=== PATIENT | female | born 1990 | race Hispanic/Latino ===

== ENCOUNTER 2018-04-06 22:36 | Emergency (ER) | payer SELFPAY ==
[2018-04-06] MEDS ORDERED: NA CHLORIDE 0.9% 2,000 ML ONE (23:10)
[2018-04-06 23:18] LABS: Absolute Lymphocytes (CBC) 5.1 K/uL (0.7-4.9); Absolute Monocytes 0.7 K/uL (0.1-1.3); Absolute Neutrophil 2.5 K/uL (1.8-8.0); Basophils % 0.5 % (0-1.3); Eosinophils % 1.5 % (0-4.4); Hematocrit 31.5 % (36.0-45.0); Lymphocytes % 59.9 % (15.3-44.8); MCH 26.4 pg (27.0-35.0); MCV 79.8 fL (80-100); MPV 7.5 fL (7.6-11.3); Monocytes % 8.5 % (3.3-12.3); RBC Red Blood Cell Count 3.94 M/uL (3.86-4.86)
[2018-04-06 23:39] LABS: BUN Blood Urea Nitrogen 14 mg/dL (7-18); Bicarbonate 27 mmol/L (21-32); Glucose Level 102 mg/dL (74-106); Potassium 3.3 mmol/L (3.5-5.1); Sodium Level 139 mmol/L (136-145)
[2018-04-06] MEDS ORDERED: POTASSIUM CL SA 10 MEQ TAB PO ONE (23:59)
--- NOTE | 2018-04-07 01:03 | ER ---
Nurse's Notes [facility] Name: Madelyn Richards Age: 27 yrs Sex: Female : 1990 Arrival Date: 04/06/2018 Time: 22:39 Bed 13 Private MD: Diagnosis: Vaginal bleeding. Anemia Presentation: 04/06 22:51 Presenting complaint: Patient states: I had my last menstrual cycle on March 26 and tl1 yesterday started having heavy vaginal bleeding with clots and have gone thru an entire package of feminine pads. Transition of care: patient was not received from another setting of care. Onset of symptoms was April 05, 2018. Risk Assessment: Do you want to hurt yourself or someone else? Patient reports no desire to harm self or others. Initial Sepsis Screen: Does the patient meet any 2 criteria? HR > 90 bpm. No. Patient's initial sepsis screen is negative. Does the patient have a suspected source of infection? No. Patient's initial sepsis screen is negative. Care prior to arrival: None. 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 - Social history:: Smoking status: Patient/guardian denies using tobacco. - Ebola Screening: : Patient negative for fever greater than or equal to 101.5 degrees Fahrenheit, and additional compatible Ebola Virus Disease symptoms Patient denies exposure to infectious person Patient denies travel to an Ebola-affected area in the 21 days before illness onset. Screenin/19 00:58 Abuse screen: Denies threats or abuse. Denies injuries from another. Nutritional tl1 screening: No deficits noted. Tuberculosis screening: No symptoms or risk factors identified. Fall Risk None identified. Assessment: 04/06 23:17 General: Appears in no apparent distress. obese, Behavior is calm, cooperative, tl1 appropriate for age. Pain: Denies pain. Neuro: Level of Consciousness is awake, alert, obeys commands. Cardiovascular: Denies chest pain. Respiratory: Airway is patent Trachea midline Respiratory effort is even, unlabored, Breath sounds are clear bilaterally. GI: Abdomen is obese, Bowel sounds present X 4 quads. Abd is soft and non tender X 4 quads. : Vaginal discharge is bloody, Reports vaginal bleeding that is bright red, with clots, heavy flow. EENT: No signs and/or symptoms were reported regarding the EENT system. Derm: No signs and/or symptoms reported regarding the dermatologic system. Musculoskeletal: No signs and/or symptoms reported regarding the musculoskeletal system. 04/07 01:15 Reassessment: Patient and/or family updated on plan of care and expected duration. Pain tl2 level reassessed. Patient is alert, oriented x 3, equal unlabored respirations, skin warm/dry/pink. Patient states feeling better. Patient states symptoms have improved. : Reports vaginal bleeding that is moderate flow. Vital Signs: 04/06 22:53 BP 130 / 93; Pulse 105; Resp 18; Temp 98.4; Pulse Ox 97% ; Weight 154.22 kg; Height 5 tl1 ft. 9 in. (175.26 cm); Pain 0/10; 23:20 BP 124 / 71; Pulse 99; Resp 20; Pulse Ox 99% on R/A; tl2 04/07 00:15 BP 127 / 80; Pulse 87; Resp 16; Pulse Ox 100% on R/A; Pain 0/10; tl1 00:58 BP 129 / 82; Pulse 85; Resp 17; Temp 98.5; Pulse Ox 100% on R/A; Pain 0/10; tl1 04/06 22:53 Body Mass Index 50.21 (154.22 kg, 175.26 cm) tl1 ED Course: 04/06 22:39 Patient arrived in ED. al2 22:40 Suman Rose MD is Attending Physician. pkl 22:50 Geni Peace, SONIA is Primary Nurse. tl1 22:52 Triage completed. tl1 22:55 Arm band placed on right wrist. tl1 22:55 Patient has correct armband on for positive identification. Placed in gown. Bed in low tl2 position. Call light in reach. Side rails up X 1. 23:16 Assist provider with pelvic exam: Set up pelvic tray. Performed by Suman Rose MD Patient tl1 tolerated well. Inserted saline lock: 20 gauge in right antecubital area, using aseptic technique. Blood collected. 04/07 01:01 Valerie Michel MD is Referral Physician. pkl 01:14 IV discontinued, intact, bleeding controlled, No redness/swelling at site. Pressure tl2 dressing applied. Administered Medications: 04/06 23:15 Drug: NS 0.9% 1000 ml Route: IV; Rate: 1000 ml; Site: right hand; tl2 04/07 00:14 Follow up: IV Status: Completed infusion tl1 00:04 Drug: K-Dur 20 mEq Route: PO; tl1 01:14 Follow up: Response: No adverse reaction; No change in condition tl2 00:14 Drug: NS 0.9% 1000 ml Route: IV; Rate: 125 ml/hr; Site: right antecubital; tl1 01:14 Follow up: IV Status: Completed infusion tl2 Outcome: 01:02 Discharge ordered by MD. pkl 01:13 Discharged to home ambulatory, with family. tl2 01:13 Condition: stable 01:13 Discharge instructions given to patient, Instructed on discharge instructions, follow up and referral plans. medication usage, Demonstrated understanding of instructions, follow-up care, medications, Prescriptions given X 2. 01:15 Patient left the ED. tl2 Signatures: Suman Rose MD MD pkl Geni Peace RN RN tl1 Clary Juan RN RN tl2 Angelia Jensen
--- NOTE | 2018-04-07 01:03 | EDPHYS ---
Physician Documentation [facility] Name: Madelyn Richards Age: 27 yrs Sex: Female : 1990 Arrival Date: 04/06/2018 Time: 22:39 Bed 13 Private MD: ED Physician Suman Rose HPI: 04/06 23:31 This 27 yrs old Female presents to ER via Ambulatory with complaints of pkl Vaginal Bleeding. 23:31 The patient presents with vaginal bleeding that is moderate, with clots. Onset: The pkl symptoms/episode began/occurred yesterday. Patient said her last menstrual period was March 26, about 10 days ago. Said her last sexual intercourse was about 2 months ago.. 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 - Social history:: Smoking status: Patient/guardian denies using tobacco. - Ebola Screening: : Patient negative for fever greater than or equal to 101.5 degrees Fahrenheit, and additional compatible Ebola Virus Disease symptoms Patient denies exposure to infectious person Patient denies travel to an Ebola-affected area in the 21 days before illness onset. ROS: 23:31 Positive for vaginal bleeding. pkl 23:31 Eyes: Negative for injury, pain, redness, and discharge, ENT: Negative for injury, pain, and discharge, Neck: Negative for injury, pain, and swelling, Cardiovascular: Negative for chest pain, palpitations, and edema, Respiratory: Negative for shortness of breath, cough, wheezing, and pleuritic chest pain, Abdomen/GI: Negative for abdominal pain, nausea, vomiting, diarrhea, and constipation, Back: Negative for injury and pain, MS/Extremity: Negative for injury and deformity, Skin: Negative for injury, rash, and discoloration, Neuro: Negative for headache, weakness, numbness, tingling, and seizure. Exam: 23:31 Head/Face: Normocephalic, atraumatic. Eyes: Pupils equal round and reactive to light, pkl extra-ocular motions intact. Lids and lashes normal. Conjunctiva and sclera are non-icteric and not injected. Cornea within normal limits. Periorbital areas with no swelling, redness, or edema. ENT: Nares patent. No nasal discharge, no septal abnormalities noted. Tympanic membranes are normal and external auditory canals are clear. Oropharynx with no redness, swelling, or masses, exudates, or evidence of obstruction, uvula midline. Mucous membranes moist. Neck: Trachea midline, no thyromegaly or masses palpated, and no cervical lymphadenopathy. Supple, full range of motion without nuchal rigidity, or vertebral point tenderness. No Meningismus. Chest/axilla: Normal chest wall appearance and motion. Nontender with no deformity. No lesions are appreciated. Cardiovascular: Regular rate and rhythm with a normal S1 and S2. No gallops, murmurs, or rubs. Normal PMI, no JVD. No pulse deficits. Respiratory: Lungs have equal breath sounds bilaterally, clear to auscultation and percussion. No rales, rhonchi or wheezes noted. No increased work of breathing, no retractions or nasal flaring. Abdomen/GI: Soft, non-tender, with normal bowel sounds. No distension or tympany. No guarding or rebound. No evidence of tenderness throughout. Back: No spinal tenderness. No costovertebral tenderness. Full range of motion. 23:31 : Pelvic Exam: Speculum exam: moderate bleeding, blood clots in vaginal vault, the nurse was present for the exam. 23:31 Musculoskeletal/extremity: Exam is negative for acute changes. 23:31 Skin: Exam negative for rash. 23:31 Neuro: Orientation: is normal, Mentation: is normal, Cranial nerves: grossly normal, Motor: is normal. 23:40 : Pelvic Exam: No vaginal laceration or teat noted. [facility] Vital Signs: 22:53 BP 130 / 93; Pulse 105; Resp 18; Temp 98.4; Pulse Ox 97% ; Weight 154.22 kg; Height 5 tl1 ft. 9 in. (175.26 cm); Pain 0/10; 23:20 BP 124 / 71; Pulse 99; Resp 20; Pulse Ox 99% on R/A; tl2 08/19 00:15 BP 127 / 80; Pulse 87; Resp 16; Pulse Ox 100% on R/A; Pain 0/10; tl1 00:58 BP 129 / 82; Pulse 85; Resp 17; Temp 98.5; Pulse Ox 100% on R/A; Pain 0/10; tl1 04/06 22:53 Body Mass Index 50.21 (154.22 kg, 175.26 cm) tl1 MDM: 04/06 22:40 Patient medically screened. pkl 04/07 00:54 Data reviewed: vital signs, nurses notes, lab test result(s). ED course: Patient pkl feeling better. Pelvic exam ( Bimanual ) done. Vaginal bleeding decreased. Patient advised to follow up with Dr. 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 at [facility] on Sunday ( 04/08/18 ). Advised to return to ER if vaginal bleeding is worse. Patient understood instructions.. 04/06 22:55 Order name: Basic Metabolic Panel; Complete Time: 23:40 tl1 04/06 22:55 Order name: CBC with Diff tl1 04/06 22:56 Order name: Type And Screen tl1 04/06 22:58 Order name: Test, Serum; Complete Time: 23:29 tl2 04/06 22:55 Order name: IV Saline Lock; Complete Time: 23:16 tl1 04/06 22:55 Order name: Labs collected and sent; Complete Time: 23:16 tl1 04/06 22:55 Order name: NPO; Complete Time: 23:16 tl1 04/06 23:26 Order name: Manual Differential EDMS 04/06 23:38 Order name: ABO/RH no charge; Complete Time: 23:40 EDMS Administered Medications: 04/06 23:15 Drug: NS 0.9% 1000 ml Route: IV; Rate: 1000 ml; Site: right hand; tl2 04/07 00:14 Follow up: IV Status: Completed infusion tl1 00:04 Drug: K-Dur 20 mEq Route: PO; tl1 01:14 Follow up: Response: No adverse reaction; No change in condition tl2 00:14 Drug: NS 0.9% 1000 ml Route: IV; Rate: 125 ml/hr; Site: right antecubital; tl1 01:14 Follow up: IV Status: Completed infusion tl2 Disposition: 04/07/18 01:02 Discharged to Home. Impression: Vaginal bleeding. Anemia. - Condition is Stable. - Prescriptions for Ferrous Sulfate 325 mg (65 mg Iron) Oral Tablet - take 1 tablet by ORAL route 2 times per day; 60 tablet. - Medication Reconciliation Form, Thank You Letter, Antibiotic Education, Prescription Opioid Use form. - Follow up: Valerie Michel MD; When: 1 - 2 days; Reason: Re-evaluation by your physician. - Problem is new. - Symptoms have improved. Signatures: Dispatcher [employer] [facility] Suman Rose MD MD pkl Geni Peace RN RN tl1 Clary Juan RN RN tl2 Corrections: (The following items were deleted from the chart) 04/06 23:25 22:55 ABO/RH TYPING+BB.LAB.BRZ ordered. EDOR EDOR 23:28 22:59 QUANTITATIVE HCG+C.LAB.BRZ ordered. [facility] 04/07 01:15 01:02 04/07/2018 01:02 Discharged to Home. Impression: Vaginal bleeding. Anemia. tl2 Condition is Stable. Forms are Medication Reconciliation Form, Thank You Letter, Antibiotic Education, Prescription Opioid Use. Follow up: Valerie Michel; When: 1 - 2 days; Reason: Re-evaluation by your physician. Problem is new. Symptoms have improved. pkl
[2018-04-07 01:24] VITALS: O2SAT 100
[2018-04-07 01:25] VITALS: BP 129/82; TEMP 98.5
[2018-04-07 01:44] LABS: Blood Morphology Comment NOT SEEN (NOT SEEN); Platelet Estimate ADEQ
== END 2018-04-07 01:15 | disposition home or self-care (01) ==
LOC: ER 22:36
DX: N93.9 Abnormal uterine and vaginal bleeding, unspecified (principal); D64.9 Anemia, unspecified; Z88.0 Allergy status to penicillin
CPT/HCPCS: 36415; 80048; 84703; 85025; 86850; 86900; 86901; 96360; 96361; 99284; J7030

== ENCOUNTER 2022-08-07 19:34 | Emergency (ER) | payer OTHER ==
--- OUTSIDE RECORDS SUMMARY | 2022-08-07 19:38 | XMS REPORT | Continuity of Care Document ---
:1990 Author Organization [facility] t Address [address] [place] [address] Care Team Providers Name Role Phone PCP, PATIENT DOES NOT HAVE A Primary Care Physician Unavaila IRMA Vázquez Attending Clinician Unavailable Jazmyne Mendez Attending Clinician [phone] Unknown, Attending Attending Clinician Unavailable JAZMYNE ANDREWS Attending Clinician Unavailable Irma Adams MD Attending Clinician Doctor Unassigned, [place] Attending Clinician Unavailable Only, Ang Db Test Attending Clinician Unavailable Omar Marvin MD Attending Clinician OMAR MARVIN Attending Clinician Unavailable Stefan Hui DO Attending Clinician Payers Payer Name Policy Type Policy Number Effective Date Expiration Date S ource [facility] [id number] 2021 2022 00:00:00 00:00:00 [facility] [id number] 2020 PPO/POS II 00:00:00 Problems Condition Condition Condition Status Onset Resolution Last Treating Co mments Source Name Details Category Date Date Treatment Clinician Date Malaise Malaise Disease Active Univers and and 5-04 ity of fatigue fatigue 00:00: [place] [address] [facility] [place] Rectal Rectal Disease Active 2012-08 Univers bleeding bleeding 0-04 ity of 00:00: [place] [address] Medical Branch History of History of Disease Active 2012-08 U nivers anemia anemia 0-03 ity of 00:00: [place] 00 Medical Branch Pelvic Pelvic Disease Active 2012-08 Univers pain pain 0-03 ity of 00:00: [place] 00 Medical Branch Morbid Morbid Disease Active 2012-08 Univers obesity obesity 0-03 ity of 00:00: [place] 00 Medical Branch Immune to Immune to Disease Active 2012-08 Uni vers varicella varicella 0-03 ity of 00:00: [place] 00 Medical Branch Rubella Rubella Disease Active 2012-08 Univers immune immune 0-03 ity of 00:00: [place] 00 Medical Branch Allergies, Adverse Reactions, Alerts Allergy Allergy Status Severity Reaction(s) Onset Inactive Treating Comm ents Source Name Type Date Date Clinician PENICILL Drug Active Hives 2010-08 Univers INS Class 1-17 ity of 00:00: [place] 00 Medical Branch Penicill Propensi Active Other - See 2010-08 Chest U nivers ins ty to comments 1-17 pain ity of adverse 00:00: [place] reaction 00 Medical s Branch Penicill Propensi Active Other - See 2010-08 Chest U nivers ins ty to comments 1-17 pain ity of adverse 00:00: [place] reaction 00 Medical s Branch Social History Social Habit Start Date Stop Date Quantity Comments Source History SDOH University o f Alcohol Frequency [facility] edical Branch History SDOH University o f Alcohol Std [place] Medical Drinks Branch History SDOH University o f Alcohol Binge [place] Medic al Branch Alcohol intake 2022-07-04 2022-07-04 .57 /d University of 00:00:00 00:00:00 [facility] Tobacco use and 2013-05-22 2013-05-22 Smokeless tobacco Un iversity of exposure 00:00:00 00:00:00 non-user [facility] Alcohol Comment 2013-05-22 2013-05-22 on occasion Universi ty of 00:00:00 00:00:00 [facility] Sex [birth year] Universit y of 00:00:00 00:00:00 [facility] Smoking Status Start Date Stop Date Source Never smoked tobacco [facility] Medications Ordered Filled Start Stop Current Ordering Indication Dosage Frequency Signature Comments Components Source Medication Medication Date Date Medication? Clinician (SIG) Name Name oseltamivir 2021-08- Yes [id number] 75mg Take 1 Univers (TAMIFLU) 09-03 capsule by ity of 75 mg 00:00: 05:59 mouth in [place] capsule 00 :00 the Medical morning Branch and 1 capsule in the evening. Do all this for 5 days. metroNIDAZO 2021- No [id number] 500mg Take 1 Univers LE 500 mg 10-17 tablet by ity of tablet 00:00: 05:59 mouth [place] 00 :00 every 12 Medical (twelve) Branch hours for 7 days. Do not drink alcohol while taking this medication . ASPIRIN/BAM Yes Take by Uni vers TAMINOPHEN/ 2-12 mouth. ity of CAFFEINE 14:05: [place] (EXCEDRIN 25 Medical MIGRAINE Branch ORAL) ASPIRIN/BAM Yes Take by Uni vers TAMINOPHEN/ 2-12 mouth. ity of CAFFEINE 14:05: [place] (EXCEDRIN 25 Medical MIGRAINE Branch ORAL) ASPIRIN/BAM Yes Take by Uni vers TAMINOPHEN/ 2-12 mouth. ity of CAFFEINE 14:05: [place] (EXCEDRIN 25 Medical MIGRAINE Branch ORAL) Immunizations Ordered Filled Immunization Date Status Comments [facility] e Immunization Name Name SARS-COV-2 COVID-19 2021-07-11 Completed Unive rsity of PFIZER VACCINE 00:00:00 [facility] SARS-COV-2 COVID-19 2021-07-11 Completed Unive rsity of PFIZER VACCINE 00:00:00 [facility] SARS-COV-2 COVID-19 2021-07-11 Completed Unive rsity of PFIZER VACCINE 00:00:00 [facility] SARS-COV-2 COVID-19 2021-06-20 Completed Unive rsity of PFIZER VACCINE 00:00:00 [facility] SARS-COV-2 COVID-19 2021-06-20 Completed Unive rsity of PFIZER VACCINE 00:00:00 [facility] SARS-COV-2 COVID-19 2021-06-20 Completed Unive rsity of PFIZER VACCINE 00:00:00 [facility] Td 2012-09-20 Completed University 00:00:00 [facility] Td 2012-09-20 Completed University of 00:00:00 [facility] Td 2012-09-20 Completed University 00:00:00 [facility] Influenza Virus 2011-07-09 Completed Universit y of Vaccine 00:00:00 [facility] Influenza Virus 2011-07-09 Completed Universit y of Vaccine 00:00:00 [facility] Influenza Virus 2011-07-09 Completed Universit y of Vaccine 00:00:00 [facility] Vital Signs Vital Name Observation Time Observation Value Comments Source Systolic blood 2022-07-04 20:11:00 143 mm[Hg] Univer sity [facility] Diastolic blood 2022-07-04 20:11:00 85 [facility]Hg[facility] 2022-07-04 20:11:00 101 /min Universi ty of [facility] Body temperature 2022-07-04 20:11:00 37.17 Ca [facility] [place] [facility] Respiratory rate 2022-07-04 20:11:00 18 /min [facility] Body height 2022-07-04 20:11:00 175.3 cm Universi ty [facility] Body weight 2022-07-04 20:11:00 165.336 kg Universi ty [facility] BMI 2022-07-04 20:11:00 53.83 kg/m2 Universi ty [facility] Oxygen saturation in 2022-07-04 20:11:00 100 /min [facility] Arterial blood by [facility] Pulse oximetry Branch Systolic blood 2021-10-17 15:22:00 120 mm[Hg] Univer [facility] Diastolic blood 2021-10-17 15:22:00 82 mm[Hg] [facility] 2021-10-17 15:22:00 78 /min Universi ty [facility] Body temperature 2021-10-17 15:22:00 36.78 Ca [facility] [place] [facility] Respiratory rate 2021-10-17 15:22:00 18 /min [facility] [place] [facility] Body height 2021-10-17 15:22:00 175.3 cm Universi ty of [facility] Body weight 2021-10-17 15:22:00 147.918 kg Universi ty [facility] BMI 2021-10-17 15:22:00 48.16 kg/m2 Universi ty [facility] Procedures Procedure Date / Time Performing Clinician Source Performed POCT MOLECULAR FLU 2022-07-04 20:26:00 Unknown, Attending [facility] POCT MOLECULAR STREP 2022-07-04 20:23:00 Unknown, Attending [facility] [place] [facility] GC & CHLAMYDIA 2021-10-17 16:10:00 Timmy Irmatj Hester o f [place] AMPLIFIED [facility] TRICHOMONAS AMPLIFIED 2021-10-17 16:10:00 Irma Adams sitmaryanne [facility] Encounters Start End Encounter Admission Attending Care Care Encounter Source Date/Time Date/Time Type Type Clinicians Facility Department ID 2022-10-17 2022-10-17 Outpatient R IRMA ADAMS [facility] [id number] Univers 10:00:00 10:00:00 ity of [facility] 2022-07-04 2022-07-04 Urgent Jazmyne Andrews [facility] 1.2. [id number] Univers 14:00:00 14:20:00 Care Unknown, Attending [facility] [id number] ity of [facility] [id number] Farrukh as GALDINO?BLEA [id number] [address] MEDICAL OFFICE [facility] 2022-07-04 2022-07-04 Outpatient R MELE [facility] [id number] Univers 14:00:00 14:00:00 KENNIKQUA ity [facility] 2022-07-04 2022-07-04 Letter Mele [facility] [id number] Univers 00:00:00 00:00:00 (Out) Jazmyne Agee [facility] [id number] ity of [facility] [id number] Farrukh as GALDINO?BLEA [id number] [address] MEDICAL OFFICE [facility] 2021-10-17 2021-10-17 Office Irma Adams [facility] [id number] Univers 09:00:00 10:20:53 Visit [place] [id number] it y of [id number] [id number] [place] [address] Branch 2021-10-17 2021-10-17 Outpatient R IRMA ADAMS [facility] [id number] Univers 09:00:00 10:20:53 ity of [facility] 2021-10-17 2021-10-17 Outpatient R IRMA ADAMS [facility] [id number] Univers 09:00:00 10:20:53 ity of [facility] 2021-10-17 2021-10-17 Outpatient R IRMA ADAMS [facility] [id number] Univers 09:00:00 09:00:00 ity of [facility] 2021-10-17 2021-10-17 Orders Doctor ESTEVAN [id number] Univers 00:00:00 00:00:00 Only Unassigned, GISELE [id number] ity of [facility] [id number] Farrukh as [id number] [facility] arben [address] 2021-08-27 2021-08-27 Laboratory Only, Ang Db Test [facility] 1.2.8 [id number] Univers 20:45:00 21:00:00 Only Kal [facility] [id number] ity of [place] [id number] Farrukh as GALDINO?BLEA [phone] [facility] [address] MEDICAL OFFICE BUILDING 2021-08-27 2021-08-27 Outpatient R KAL [facility] [id number] Univers 20:45:00 20:45:00 OMAR [facility] 2020-11-09 2020-11-09 Patient Ez [facility] [id number] Univers 00:00:00 00:00:00 Outreach Stefan [facility] [id number] i ty of [place] [facility] [id number] [id number] Nv dical [address] 2020-10-13 2020-10-13 Outpatient R IRMA ADAMS [facility] [id number] Univers 09:00:00 09:00:00 ity of [facility] 2020-10-01 2020-10-01 Office Irma Adams [facility] [id number] Univers 13:41:52 14:46:53 Visit [place] [id number] i ty [id number] [id number] Nv dical nal [address] 2020-10-01 2020-10-01 Outpatient R IRMA ADAMS [facility] [id number] Univers 13:45:00 13:45:00 ity of [facility] 2020-10-01 2020-10-01 Orders Doctor ESTEVAN [id number] Univers 00:00:00 00:00:00 Only Unassigned, GISELE [id number] ity of [place] [facility] [id number] Farrukh as [phone] [address] Results Test Description Test Time Test Comments Results Result Comments Source POCT MOLECULAR STREP 2022-07-04 20:30:56 Test Item Value Reference Range Interpretation Comme nts POCT Molecular Strep (test code = 52782-8) Negative Negative Lab Interpretation (test code = 17267-3) [id number] 20:30:25 Test Item Value Reference Range Interpretation Comments POCT Molecular FluA (test code = Positive Negative A 46510-8) Lab Interpretation (test code = Abnormal 46378-8) [facility]
[2022-08-07] MEDS ORDERED: MORPHINE 4 MG/ML SYR ONE (20:18)
[2022-08-07] MEDS ORDERED: NA CHLORIDE 0.9% 1,000 ML ONE (20:18)
[2022-08-07] MEDS ORDERED: ONDANSETRON 4 MG/2 ML VIAL ONE (20:18)
[2022-08-07 20:49] LABS: Absolute Lymphocytes (CBC) 2.3 K/uL (0.7-4.9); Hematocrit 39.3 % (36.0-45.0); Lymphocytes % 20.8 % (15.3-44.8); MCV 84.8 fL (80-100); MPV 7.6 fL (7.6-11.3); RBC Red Blood Cell Count 4.64 M/uL (3.86-4.86)
[2022-08-07 21:11] LABS: Potassium 3.5 mmol/L (3.5-5.1)
--- NOTE | 2022-08-07 21:23 | RAD REPORT ---
EXAM DESCRIPTION: Florencio Wagner Left08/07/2022 9:00 pm CLINICAL HISTORY: Left leg pain status post injury FINDINGS: No fracture is seen
[2022-08-07 21:29] LABS: Urine Blood 3+ (Negative); Urine Glucose Negative (Negative); Urine Protein 2+ (Negative); Urine Specific Gravity >=1.030 (1.005-1.030)
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
[2022-08-07 22:28] LABS: Urine Specific Gravity/Preg >1.030 (1.005-1.030)
[2022-08-07] MEDS ORDERED: KETOROLAC 30 MG/ML INJ ONE (22:33)
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
[2022-08-07 23:01] VITALS: TEMP 98.3; O2SAT 100
[2022-08-07 23:04] VITALS: BP 143/78
== END 2022-08-07 22:57 | disposition home or self-care (01) ==
LOC: ER 19:34
DX: G44.319 Acute post-traumatic headache, not intractable (principal); M54.2 Cervicalgia; M54.50 Low back pain, unspecified; M79.605 Pain in left leg; N83.299 Other ovarian cyst, unspecified side; V49.49XA Driver injured in collision with other motor vehicles in traffic accident, initial encounter; Z88.0 Allergy status to penicillin
CPT/HCPCS: 85025; 80048; 36415; 86900; 86850; 81025; 86901; 81003; 70450; 72125; 71260; 74177; 73590; Q9967; J7030; J2405; 96361; 96374; 96375; 99284

== ENCOUNTER 2024-08-29 15:46 | Inpatient (IN) | payer SELFPAY ==
--- OUTSIDE RECORDS SUMMARY | 2024-08-29 15:50 | XMS REPORT | Continuity of Care Document ---
Author Name Unknown Address [address] [facility] [place] [address] [facility] Address [address] [facility] [address] [place] [address] Care Team Providers Care Order Takers Supervisor Name Role Phone PCP, PATIENT DOES NOT HAVE A Primary Care Physic alisia Unavailable NESSA KAT Attending Clinician Unavailable OMAR BOWDEN Attending Clinician Unavailable Omar Bowden MD Attending Clinician [phone] Unknown, Attending Attending Clinician UnavailARRON Ellis Attending Clinician Unavailmichelle sepulveda Unknown, Attending Attending Clinician Unavailab Paula Quinn Attending Clinician + [phone] PAULA CHAVIRA Attending Clinician UnavailRAJESH Madden Attending Clinician Unavailable Rajesh Schwarz Attending Clinician [phone] Becca Nelson PA-C Attending Clinician [phone] BECCA NELSON Attending Clinician Unavailable Marlo Monroe Attending Clinician [phone] MARLO ARIAS Attending Clinician Unavailable Doctor Unassigned, [place] Attending Clinician U IRMA Goldsmith Attending Clinician Unavailable JAZMYNE SHABAZZ Attending Clinician Jazmyne Dick Attending Clinician [phone] Irma Warner MD Attending Clinician [phone] Only, Ang Db Test Attending Clinician UnavailOmar Ayala MD Attending Clinician [phone] Stefan Hui DO Attending Clinician Payers Payer Name Policy Type Policy Number Effective Date Expirati on Date Source [employer] [id number] 2023 00:00:00 [employer] [id number] 2022 00:00:00 2023 00:00:00 [facility] [id number] 2021 00:00:00 2022 00:00:00 TSHBP 90 DEGREES [id number] 2021 00:00:00 2021 00:00:00 [facility] PPO/POS II [id number] 2020 00:00:00 Problems Condition Name Condition Details Condition Category Status Onset Date Resolution Date Last Treatment Date Treating Clinician Comments Source Malaise and fatigue Malaise and fatigue Disease Active 12-21 00:00: 00 [facility] Rectal bleeding Rectal bleeding Disease Active 2012-08 00:00: 00 [facility] History of anemia History of anemia Disease Active 2012-08 00:00: 00 [facility] Pelvic pain Pelvic pain Disease Active 2012-08 00:00: 00 [facility] Morbid obesity Morbid obesity Disease Active 2012-08 00:00: 00 [facility] Immune to varicella Immune to varicella Disease Active 2012-08 00:00: 00 [facility] Rubella immune Rubella immune Disease Active 2012-08 00:00: 00 [facility] Normal delivery Normal delivery Disease Resolve d 2010-08 00:00: 00 2013-05-22 00:00:00 2013-05-22 12:19:00 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 Allergies, Adverse Reactions, Alerts Allergy Name Allergy Type Status Severity Reaction(s) Onset Date Inactive Date Treating Clinician Comments Source PENICILL INS Drug Class Active Hives 2010-08 00:00: 00 [facility] Penicill ins Propensi ty to adverse reaction s Active Other - See comments 2010-08 00:00: 00 Chest pain [facility] Penicill ins Propensi ty to adverse reaction s Active Other - See comments 2010-08 00:00: [address] [facility] Social History Social Habit Start Date Stop Date Quantity Comments Source [facility] SDOH Alcohol Frequency [facility] History SDOH Alcohol Std Drinks [facility] History SDOH Alcohol Binge [facility] Alcoholic beverage intake 2024-07-02 00:00:00 2024-07-02 00:00:00 .57 /d [facility] Alcohol intake 2023-11-19 00:00:00 2023-11-19 00:00:00 .57 /d [facility] Tobacco use and exposure 2023-01-25 00:00:00 2023-01-25 00:00:00 Smokeless tobacco non-user [facility] History of Social function 2021-10-17 00:00:00 2021-10-17 00:00:00 [facility] Alcohol Comment 2013-05-22 00:00:00 2013-05-22 00:00:00 on occasion [facility] Sex assigned at 1990 00:00:00 1990 00:00:00 [facility] Smoking Status Start Date Stop Date Source Never smoked tobacco [facility] Medications Ordered Medication Name Filled Medication Name Start Date Stop Date Current Medication? Ordering Clinician Indication Dosage Frequency Signature (SIG) Comments Components Source acetaminoph en (TYLENOL) tablet 975 mg 2023-08 03:30: 00 07-03 02:34 :00 No [id number] 975mg 975 mg, Oral, ONCE, 1 dose, On Sun07/02/24 at 2130, Routine [facility] ibuprofen (IBU) tablet 800 mg 2023-08 03:15: 00 07-03 02:35 :00 No [id number] 800mg 800 mg, Oral, ONCE, 1 dose, On Sun07/02/24 at 2115, Routine [facility] ondansetron 4 mg disintegrat ing tablet 2023-08 00:00: 00 Yes [id number] 4mg Take 1 tablet by mouth every 12 (twelve) hours as needed for Nausea and Vomiting (N/V). [facility] bromphenira mine-pseudo ephedrine-D M (BROMFED DM) 2-30-10 mg/5 mL syrup 2023-08 00:00: 00 Yes [id number] 10mL Take 10 mL by mouth 4 (four) times daily as needed for Congestion /Allergies , Cold symptoms or Cough. [facility] dexamethaso ne sod phos PF injection 10 mg 02-10 20:30: 00 02-10 19:44 :00 No [id number] 10mg 10 mg, Intramuscu lar, ONCE NOW, 1 dose, On Sun02/11/24 at 1530, [address] [facility] methylPREDN ISolone (MEDROL, TAMELA,) 4 mg tablets 02-10 00:00: 00 Yes [id number] Take by mouth SEE-INSTRU CTIONS. follow package directions [facility] ASPIRIN/BMA TAMINOPHEN/ CAFFEINE (EXCEDRIN MIGRAINE ORAL) 11-18 09:14: 00 Yes Take by mouth. [facility] metroNIDAZO LE 500 mg tablet 11-12 00:00: 00 11-20 04:59 :00 No [id number] 500mg Take 1 tablet by mouth in the morning and 1 tablet in the evening. Do all this for [address] [facility] fluconazole 150 mg tablet 11-12 00:00: 00 11-13 04:59 :00 No [id number] 150mg Take 1 tablet by mouth once now for [address] [facility] Cetirizine (ZYRTEC) 10 mg capsule 11-11 08:29: 10 11-11 00:00 :00 No Take by mouth. [facility] ASPIRIN/BAM TAMINOPHEN/ CAFFEINE (EXCEDRIN MIGRAINE ORAL) 11-11 08:29: 08 Yes Take by mouth. [facility] sulfamethox azole-trime thoprim (BACTRIM DS) 800-160 mg per tablet 09-09 00:00: 00 09-17 05:59 :00 No [id number] 1{tbl} Take 1 tablet by mouth in the morning and 1 tablet in the evening. Do all this for [address] [facility] azithromyci n 250 mg tablet 2022-08 00:00: 00 07-15 05:59 :00 No [id number] 500mg Take 2 tablets by mouth in the morning for [address] [facility] mupirocin 2 % ointment 05-19 00:00: 00 11-11 00:00 :00 No [id number] Apply to area(s) 3 (three) times daily. [facility] sulfamethox azole-trime thoprim (BACTRIM DS) 800-160 mg per tablet 05-19 00:00: 00 09-09 00:00 :00 No [id number] 1{tbl} Take 1 tablet by mouth in the morning and 1 tablet in the evening. [facility] Cetirizine (ZYRTEC) 10 mg capsule 01-25 10:53: 39 Yes Take by mouth. [facility] methylPREDN ISolone (MEDROL, TAMELA,) 4 mg tablets 6-08 00:00: 00 11-11 00:00 :00 No [id number] Take by mouth SEE-INSTRU CTIONS. follow package directions [facility] oseltamivir (TAMIFLU) 75 mg capsule 2021-08 1-15 00:00: 00 07-10 05:59 :00 No [id number] 75mg Take 1 capsule by mouth in the morning and 1 capsule in the evening. Do all this for [address] [facility] metroNIDAZO LE 500 mg tablet 20210-17 00:00: 00 10-25 05:59 :00 No [id number] 500mg Take 1 tablet by mouth every 12 (twelve) hours for 7 days. Do not drink alcohol while taking this medication . [facility] ASPIRIN/BAM TAMINOPHEN/ CAFFEINE (EXCEDRIN MIGRAINE ORAL) 10-01 14:05: 25 Yes Take by mouth. [facility] Immunizations Ordered Immunization Name Filled Immunization Name Date Status Comments Source SARS-COV-2 COVID-19 PFIZER VACCINE 2021-07-11 00:00:00 Completed [facility] SARS-COV-2 COVID-19 PFIZER VACCINE 2021-07-11 00:00:00 Completed [facility] SARS-COV-2 COVID-19 PFIZER VACCINE 2021-07-11 00:00:00 Completed [facility] SARS-COV-2 COVID-19 PFIZER VACCINE 2021-07-11 00:00:00 Completed [facility] SARS-COV-2 COVID-19 PFIZER VACCINE 2021-07-11 00:00:00 Completed [facility] SARS-COV-2 COVID-19 PFIZER VACCINE 2021-07-11 00:00:00 Completed [facility] SARS-COV-2 COVID-19 PFIZER VACCINE 2021-07-11 00:00:00 Completed SARS-COV-2 COVID-19 PFIZER VACCINE 2021-06-20 00:00:00 Completed [facility] SARS-COV-2 COVID-19 PFIZER VACCINE 2021-06-20 00:00:00 Completed [facility] SARS-COV-2 COVID-19 PFIZER VACCINE 2021-06-20 00:00:00 Completed [facility] SARS-COV-2 COVID-19 PFIZER VACCINE 2021-06-20 00:00:00 Completed [facility] SARS-COV-2 COVID-19 PFIZER VACCINE 2021-06-20 00:00:00 Completed [facility] SARS-COV-2 COVID-19 PFIZER VACCINE 2021-06-20 00:00:00 Completed [facility] SARS-COV-2 COVID-19 PFIZER VACCINE 2021-06-20 00:00:00 Completed [facility] Td 2012-09-20 00:00:00 Completed [facility] Td 2012-09-20 00:00:00 Completed [facility] Td 2012-09-20 00:00:00 Completed [facility] TD, NOS 2012-09-20 00:00:00 Completed [facility] TD, NOS 2012-09-20 00:00:00 Completed [facility] TD, NOS 2012-09-20 00:00:00 Completed [facility] TD, NOS 2012-09-20 00:00:00 Completed [facility] Influenza Virus Vaccine 2011-07-09 00:00:00 Completed [facility] Influenza Virus Vaccine 2011-07-09 00:00:00 Completed [facility] Influenza Virus Vaccine 2011-07-09 00:00:00 Completed [facility] Influenza Virus Vaccine 2011-07-09 00:00:00 Completed [facility] Influenza Virus Vaccine 2011-07-09 00:00:00 Completed [facility] Influenza Virus Vaccine 2011-07-09 00:00:00 Completed [facility] Influenza Virus Vaccine 2011-07-09 00:00:00 Completed [facility] Influenza Virus Vaccine Unknown Completed [facility] TD, NOS Unknown Completed [facility] SARS-COV-2 COVID-19 PFIZER VACCINE Unknown Completed [facility] Influenza Virus Vaccine Unknown Completed [facility] TD, NOS Unknown Completed [facility] SARS-COV-2 COVID-19 PFIZER VACCINE Unknown Completed [facility] Influenza Virus Vaccine Unknown Completed [facility] TD, NOS Unknown Completed [facility] SARS-COV-2 COVID-19 PFIZER VACCINE Unknown Completed [facility] Influenza Virus Vaccine Unknown Completed [facility] TD, NOS Unknown Completed [facility] SARS-COV-2 COVID-19 PFIZER VACCINE Unknown Completed [facility] Influenza Virus Vaccine Unknown Completed [facility] TD, NOS Unknown Completed [facility] SARS-COV-2 COVID-19 PFIZER VACCINE Unknown Completed [facility] Influenza Virus Vaccine Unknown Completed [facility] TD, NOS Unknown Completed [facility] SARS-COV-2 COVID-19 PFIZER VACCINE Unknown Completed [facility] Influenza Virus Vaccine Unknown Completed [facility] TD, NOS Unknown Completed [facility] SARS-COV-2 COVID-19 PFIZER VACCINE Unknown Completed [facility] Influenza Virus Vaccine Unknown Completed [facility] TD, NOS Unknown Completed [facility] SARS-COV-2 COVID-19 PFIZER VACCINE Unknown Completed [facility] Influenza Virus Vaccine Unknown Completed [facility] TD, NOS Unknown Completed [facility] SARS-COV-2 COVID-19 PFIZER VACCINE Unknown Completed [facility] Vital Signs Vital Name Observation Time Observation Value Comments S ource Systolic blood pressure 2024-07-03 02:14:00 147 mm[Hg] [facility] Diastolic blood pressure 2024-07-03 02:14:00 92 mm[Hg] [facility] Heart rate 2024-07-03 02:10:00 117 /min [facility] Body temperature 2024-07-03 02:10:00 37.33 Ca [facility] Respiratory rate 2024-07-03 02:10:00 19 /min [facility] Body height 2024-07-03 02:10:00 175.3 cm [facility] Body weight 2024-07-03 02:10:00 169.691 kg [facility] BMI 2024-07-03 02:10:00 55.24 kg/m2 [facility] Oxygen saturation in Arterial blood by Pulse oximetry 2024-07-03 02:10:00 98 /min [facility] Systolic blood pressure 2024-02-11 19:22:00 138 mm[Hg] [facility] Diastolic blood pressure 2024-02-11 19:22:00 88 mm[Hg] [facility] Heart rate 2024-02-11 19:22:00 79 /min [facility] Body temperature 2024-02-11 19:22:00 36.72 Ca [facility] Respiratory rate 2024-02-11 19:22:00 18 /min [facility] Body height 2024-02-11 19:22:00 175.3 cm [facility] Body weight 2024-02-11 19:22:00 168.313 kg [facility] BMI 2024-02-11 19:22:00 54.80 kg/m2 [facility] Oxygen saturation in Arterial blood by Pulse oximetry 2024-02-11 19:22:00 99 /min [facility] Systolic blood pressure 2023-11-19 14:31:00 111 mm[Hg] [facility] Diastolic blood pressure 2023-11-19 14:31:00 73 mm[Hg] [facility] Heart rate 2023-11-19 14:31:00 86 /min [facility] Respiratory rate 2023-11-19 14:31:00 18 /min [facility] Body height 2023-11-19 14:31:00 175.3 cm [facility] Body weight 2023-11-19 14:31:00 165.563 kg [facility] BMI 2023-11-19 14:31:00 53.90 kg/m2 [facility] Systolic blood pressure 2023-11-12 13:29:00 139 mm[Hg] [facility] Diastolic blood pressure 2023-11-12 13:29:00 89 mm[Hg] [facility] Heart rate 2023-11-12 13:29:00 68 /min [facility] Body temperature 2023-11-12 13:29:00 36.78 Ca [facility] Respiratory rate 2023-11-12 13:29:00 16 /min [facility] Body height 2023-11-12 13:29:00 175.3 cm [facility] Body weight 2023-11-12 13:29:00 165.518 kg [facility] BMI 2023-11-12 13:29:00 53.89 kg/m2 [facility] Systolic blood pressure 2023-09-10 01:37:00 138 mm[Hg] [facility] Diastolic blood pressure 2023-09-10 01:37:00 79 mm[Hg] [facility] Heart rate 2023-09-10 01:37:00 90 /min [facility] Body temperature 2023-09-10 01:37:00 37.11 Ca [facility] Respiratory rate 2023-09-10 01:37:00 16 /min [facility] Body height 2023-09-10 01:37:00 175.3 cm [facility] Body weight 2023-09-10 01:37:00 167.377 kg [facility] BMI 2023-09-10 01:37:00 54.49 kg/m2 [facility] Oxygen saturation in Arterial blood by Pulse oximetry 2023-09-10 01:37:00 99 /min [facility] Systolic blood pressure 2023-07-09 18:06:00 141 mm[Hg] [facility] Diastolic blood pressure 2023-07-09 18:06:00 90 mm[Hg] [facility] Heart rate 2023-07-09 18:06:00 93 /min [facility] Body temperature 2023-07-09 18:06:00 37.17 Ca [facility] Respiratory rate 2023-07-09 18:06:00 16 /min [facility] Body height 2023-07-09 18:06:00 175.3 cm [facility] Body weight 2023-07-09 18:06:00 162.983 kg [facility] BMI 2023-07-09 18:06:00 53.06 kg/m2 [facility] Oxygen saturation in Arterial blood by Pulse oximetry 2023-07-09 18:06:00 99 /min [facility] Systolic blood pressure 2023-05-20 01:39:00 125 mm[Hg] [facility] Diastolic blood pressure 2023-05-20 01:39:00 87 mm[Hg] [facility] Heart rate 2023-05-20 01:39:00 86 /min [facility] Body temperature 2023-05-20 01:39:00 37 Ca [facility] Respiratory rate 2023-05-20 01:39:00 18 /min [facility] Body weight 2023-05-20 01:39:00 162.342 kg [facility] BMI 2023-05-20 01:39:00 52.85 kg/m2 [facility] Oxygen saturation in Arterial blood by Pulse oximetry 2023-05-20 01:39:00 97 /min [facility] Systolic blood pressure 2023-01-25 15:51:00 130 mm[Hg] [facility] Diastolic blood pressure 2023-01-25 15:51:00 85 mm[Hg] [facility] Heart rate 2023-01-25 15:51:00 92 /min [facility] Body temperature 2023-01-25 15:51:00 36.17 Ca [facility] Respiratory rate 2023-01-25 15:51:00 19 /min [facility] Body height 2023-01-25 15:51:00 175.3 cm [facility] Body weight 2023-01-25 15:51:00 164.837 kg [facility] BMI 2023-01-25 15:51:00 53.66 kg/m2 [facility] Oxygen saturation in Arterial blood by Pulse oximetry 2023-01-25 15:51:00 95 /min [facility] Systolic blood pressure 2022-07-04 20:11:00 143 mm[Hg] [facility] Diastolic blood pressure 2022-07-04 20:11:00 85 mm[Hg] [facility] Heart rate 2022-07-04 20:11:00 101 /min [facility] Body temperature 2022-07-04 20:11:00 37.17 Ca [facility] Respiratory rate 2022-07-04 20:11:00 18 /min [facility] Body height 2022-07-04 20:11:00 175.3 cm [facility] Body weight 2022-07-04 20:11:00 165.336 kg [facility] BMI 2022-07-04 20:11:00 53.83 kg/m2 [facility] Oxygen saturation in Arterial blood by Pulse oximetry 2022-07-04 20:11:00 100 /min [facility] Systolic blood pressure 2021-10-17 15:22:00 120 mm[Hg] [facility] Diastolic blood pressure 2021-10-17 15:22:00 82 mm[Hg] [facility] Heart rate 2021-10-17 15:22:00 78 /min [facility] Body temperature 2021-10-17 15:22:00 36.78 Ca [facility] Respiratory rate 2021-10-17 15:22:00 18 /min [facility] Body height 2021-10-17 15:22:00 175.3 cm [facility] Body weight 2021-10-17 15:22:00 147.918 kg [facility] BMI 2021-10-17 15:22:00 48.16 kg/m2 [facility] Procedures Procedure Date / Time Performed Performing Clinician Source POCT SARS-COV-2 ANTIGEN (BINAX NOW) 2024-07-03 02:38:00 Omar Bowden [facility] POCT MOLECULAR FLU 2024-07-03 02:21:00 [facility] 2024-07-03 02:20:00 Omar Bowden [facility] GC & CHLAMYDIA AMPLIFIED ASSAY 2023-11-12 13:51:00 Nessa Kat [facility] GALV ONLY - VAGINAL PATHOGENS BY NUCLEIC ACID TESTING 2023-11-12 13:51:00 Nessa Kat [facility] POCT MOLECULAR STREP 2023-07-09 18:11:00 Unknown, Attcoco aleman [facility] POCT SARS-COV-2 ANTIGEN (BINAX NOW) 2023-01-25 16:20:00 Marlo Arias [facility] POCT MOLECULAR STREP 2023-01-25 15:59:00 Unknown, Attcoco aleman [facility] CONSENT/REFUSAL FOR DIAGNOSIS AND TREATMENT 2023-01-25 15:44:27 Doctor Unassigned, [place] [facility] ASSIGNMENT OF BENEFITS 2023-01-25 15:44:14 Docto r Unassigned, [place] [facility] POCT MOLECULAR FLU 2022-07-04 20:26:00 Unknown, Attend ing [facility] POCT MOLECULAR STREP 2022-07-04 20:23:00 Unknown, Samantha aleman [facility] GC & CHLAMYDIA AMPLIFIED ASSAY 2021-10-17 16:10:00 FishIrma [facility] TRICHOMONAS AMPLIFIED ASSAY 2021-10-17 16:10:00 Irma Warner [facility] Encounters Start Date/Time End Date/Time Encounter Type Admission Type Attending [facility] Facility Care Department Encounter ID Source 2024-07-02 20:00:00 2024-07-02 20:41:38 Outpatient R KAL OMAR [facility] [id number] [facility] 2024-07-02 20:00:00 2024-07-02 20:41:38 Urgent Care KalOmar Unknown, Attending [facility] [facility] 1..840.114 [id number] [id number] [facility] 2024-02-11 14:20:00 2024-02-11 15:33:21 Outpatient R ARRON GARCIA [facility] [id number] [facility] 2024-02-11 14:20:00 2024-02-11 14:40:00 Urgent Care Arron Garcia Unknown, Attending [facility] [facility] 1..840.114 350.1.13.10 [id number] [facility] 2023-11-19 09:30:00 2023-11-19 09:47:02 Outpatient R NESSA KAT [facility] [id number] [facility] 2023-11-19 09:30:00 2023-11-19 09:47:02 Office Visit Nessa Kat [facility] 1..840.114 350.1.13.10 [id number] [facility] 2023-11-13 00:00:00 2023-11-13 00:00:00 Case Management Nessa Kat [facility] 1..840.114 350.1.13.10 [id number] [facility] 2023-11-12 08:30:00 2023-11-12 08:48:05 Outpatient R NESSA KAT [facility] [id number] [facility] 2023-11-12 08:30:00 2023-11-12 08:48:05 Office Visit Nessa Kat [facility] 1..840.114 350.1.13.10 [id number] [facility] 2023-11-05 13:30:00 2023-11-05 13:30:00 Outpatient R NESSA KAT [facility] [id number] [facility] 2023-09-09 19:40:00 2023-09-09 20:00:00 Urgent Care Eugenio Paula J Unknown, Attending [facility] [facility] 1..840.114 350.1.13.10 [id number] [facility] 2023-09-09 19:40:00 2023-09-09 19:40:00 Outpatient R PAULA CHAVIRA [facility] [id number] [facility] 2023-07-09 12:00:00 2023-07-09 13:08:02 Outpatient R RAJESH CHAVEZ [facility] [id number] [facility] 2023-07-09 12:00:00 2023-07-09 13:08:02 Urgent Care Rajesh Chavez Unknown, Attending [facility] [facility] 1..840.114 350.1.13.10 [id number] [facility] 2023-07-09 00:00:00 2023-07-09 00:00:00 Telephone Rajesh Chavez [facility] [facility] 1.114 350.1.13.10 [id number] [facility] 2023-05-19 20:20:00 2023-05-19 20:49:04 Urgent Care Becca Nelson Unknown, Attending [facility]?[employer] [facility] [id number] 350.1.13.10 [id number] [facility] 2023-05-19 20:20:00 2023-05-19 20:20:00 Outpatient R BECCA NELSON [facility] [id number] [facility] 2023-01-25 10:40:00 2023-01-25 11:00:00 Urgent Care Marlo Arias Unknown, Attending [facility]?[employer] [facility] 1.84.114 350.1.13.10 [id number] [facility] 2023-01-25 10:40:00 2023-01-25 10:40:00 Outpatient R MARLO ARIAS [facility] [id number] [facility] 2023-01-25 00:00:00 2023-01-25 00:00:00 Orders Only Doctor Unassigned, [place] [facility] 1.114 350.1.13.10 4.2.7.2.[id number] [facility] 2023-01-25 00:00:00 2023-01-25 00:00:00 Letter (Out) Marlo Arias [facility] [facility] 1.84.114 350.1.13.10 4.2.7.2.[id number] [facility] 2022-10-17 10:00:00 2022-10-17 10:00:00 Outpatient R TERESA WARNERN [facility] [id number] [facility] 2022-07-04 14:00:00 2022-07-04 14:49:26 Outpatient R JAZMYNE SHABAZZ [facility] [id number] [facility] 2022-07-04 14:00:00 2022-07-04 14:20:00 Urgent Care Jazmyne Shabazz Unknown, Attending [facility]?[employer] [facility] 1.2.840.114 350.1.13.10 4.2.7.2.[id number] [facility] 2022-07-04 00:00:00 2022-07-04 00:00:00 Letter (Out) Jazmyne Shabazz [facility]?[employer] [facility] [id number] 350.1.13.10 4.2.7.2.[id number] [facility] 2021-10-17 09:00:00 2021-10-17 10:20:53 Office Visit TimmyTeresan [facility] 1..840.114 350.1.13.10 4.2.7.2.[id number] [facility] 2021-10-17 09:00:00 2021-10-17 10:20:53 Outpatient R TIMMY IRMA [facility] [id number] [facility] 2021-10-17 09:00:00 2021-10-17 10:20:53 Outpatient R IRMA WARNER [facility] [id number] [facility] 2021-10-17 09:00:00 2021-10-17 09:00:00 Outpatient R IRMA WARNER [facility] [id number] [facility] 2021-10-17 00:00:00 2021-10-17 00:00:00 Orders Only Doctor Unassigned, [place] [facility] 1.114 350.1.13.10 4.2.7.2.[id number] [facility] 2021-10-13 00:00:00 2021-10-13 00:00:00 Patient Secure Msg Doctor Unassigned, [place] [facility] 1.114 350.1.13.10 4.2.7.2.[id number] [facility] 2021-08-27 20:45:00 2021-08-27 21:00:00 Laboratory Only Only, Ang Db Test Kal [facility] 1.114 350.1.13.10 4.2.7.2.[id number] [facility] 2021-08-27 20:45:00 2021-08-27 20:45:00 Outpatient R OMAR BOWDEN [facility] [id number] [facility] 2020-11-09 00:00:00 2020-11-09 00:00:00 Patient Outreach Stefan Hui [facility] 1.114 350.1.13.10 4.2.7.2.[id number] [facility] 2020-10-13 09:00:00 2020-10-13 09:00:00 Outpatient R IRMA WARNER [facility] [id number] [facility] 2020-10-01 13:41:52 2020-10-01 14:46:53 [facility] 1.114 350.1.13.10 4.2.7.2.[id number] [facility] 2020-10-01 13:45:00 2020-10-01 13:45:00 Outpatient IRMA MARTEL [facility] [id number] [facility] 2020-10-01 00:00:00 2020-10-01 00:00:00 Orders Only Doctor Unassigned, [place] [facility] [id number] 350.1.13.10 4.2.7.2.[id number] [facility] Results Test Description Test Time Test Comments Results Result Co mments Source [facility] Molecular [id number] 02:32:52* Test Item Value Reference Range Interpretation Comme nts POCT Molecular FluA (test co de = 89740-5) Negative Negative POCT Molecular FluB (test co de = 53060-0) Negative Negative Lab Interpretation (test cod e = 31058-3) Normal [facility] MOLECULAR [id number] 02:27:54* Test Item Value Reference Range Interpretation Comme nts POCT Molecular Strep (test c ode = 48341-1) Negative Negative Lab Interpretation (test cod e = 56099-5) Normal [facility] MOLECULAR [id number] 18:16:07* Test Item Value Reference Range Interpretation Comme nts POCT Molecular Strep (test c ode = 61034-0) Positive Negative A Lab Interpretation (test cod e = 11479-3) Abnormal [facility] MOLECULAR [id number] 18:16:07* Test Item Value Reference Range Interpretation Comme nts POCT Molecular Strep (test c ode = 17510-3) Positive Negative A Lab Interpretation (test cod e = 06089-0) Abnormal [facility] SARS-COV-2 ANTIGEN (BINAX NOW)2023-01-25 16:20:00* Test Item Value Reference Range Interpretation Comme nts POCT SARS-COV-2 ANTIGEN (honey t code = 20820-6) Not Detected Not Detected On board controls acceptable with C Line (test code = 3574) Yes Lab Interpretation (test cod e = 28058-6) Normal [facility] MOLECULAR [id number] 16:06:52* Test Item Value Reference Range Interpretation Comme nts POCT Molecular Strep (test c ode = 88458-3) Negative Negative Lab Interpretation (test cod e = 60253-8) Normal [facility] MOLECULAR [id number] 20:30:56* Test Item Value Reference Range Interpretation Comme nts POCT Molecular Strep (test c ode = 65813-6) Negative Negative Lab Interpretation (test cod e = 34389-3) Normal [facility] MOLECULAR [id number] 20:30:25* Test Item Value Reference Range Interpretation Comme nts POCT Molecular FluA (test co de = 34553-2) Positive Negative A Lab Interpretation (test cod e = 27734-8) Abnormal [facility]
[2024-08-29 16:28] LABS: Absolute Basophils 0.1 K/uL (0-0.5); Absolute Eosinophils 0.2 K/uL (0-0.5); Absolute Lymphocytes (CBC) 9.6 K/uL (0.7-4.9); Absolute Monocytes 0.6 K/uL (0.1-1.3); Absolute Neutrophil 3.6 K/uL (1.8-8.0); Basophils % 0.5 % (0-1.3); Eosinophils % 1.4 % (0-4.4); Hematocrit 29.5 % (36.0-45.0); Lymphocytes % 68.5 % (15.3-44.8); MCH 26.9 pg (27.0-35.0); MCHC 30.6 g/dL (32.0-36.0); MCV 88.1 fL (80-100); MPV 8.6 fL (7.6-11.3); Monocytes % 3.9 % (3.3-12.3); Neutrophils % 25.7 % (41.7-73.7); Nucleated Red Blood Cells % 0.2 % (0-0); Platelets 240 thou/uL (152-406); RBC Red Blood Cell Count 3.35 M/uL (3.86-4.86); Red Cell Distribution Width 16.7 % (12.1-15.2)
[2024-08-29 16:32] LABS: PTT, Activated Partial Thromb 56.7 SECONDS (24.3-36.9); Protime INR 1.26
[2024-08-29] MEDS ORDERED: DOPAMINE/D5W 400 MG/250 ML BAG IV ONE (16:37)
[2024-08-29 16:55] LABS: ALT/SGPT 211 U/L (13-56); AST/SGOT 173 U/L (15-37); Albumin 2.4 g/dL (3.4-5.0); Albumin/Globulin Ratio 0.7 (1.1-1.8); Alkaline Phosphatase 68 U/L (45-117); Anion Gap 26.7 mEq/L (5.0-15.0); BUN Blood Urea Nitrogen 14 mg/dL (7-18); Bicarbonate 22 mEq/L (21-32); Bilirubin Direct < 0.2 mg/dL (0-0.2); Bilirubin Total < 0.2 mg/dL (0.2-1.0); Globulin 3.5 g/dL (2.3-3.5); Glomerular Filtration Rate 56 ml/min (=/>90); Glucose Level 595 mg/dL (74-106); Potassium 3.7 mEq/L (3.5-5.1); Protein, Total 5.9 g/dL (6.4-8.2); Sodium Level 139 mEq/L (136-145); Troponin High Sensitivity 29.7 pg/mL (<58.9)
[2024-08-29 16:56] LABS: Atypical Lymphocytes 6 %; Differential Total Cells Count 100; Lymphocytes 62 % (15-42); Monocytes 6 % (0-10); Segmented Neutrophils 23 % (40-80)
[2024-08-29 16:57] LABS: Blood Morphology Comment NOT SEEN (NOT SEEN); Platelet Estimate ADEQ; Platelets, Giant PRESENT
--- NOTE | 2024-08-29 17:01 | EDPHYS ---
Physician Documentation [facility] Name: Madelyn Richards Age: 34 yrs Sex: Female : 1990 Arrival Date: 08/29/2024 Time: 15:46 Bed 3 Private MD: ED Physician Anderson Ann HPI: 08/29 16:32 This 34 yrs old Female presents to ER via Unassigned with complaints of CPR. sp3 16:32 34-year-old female with no known past medical history presents as CPR arrest by EMS. sp3 History per family states that she recently had a break-up with his significant other that she was engaged with but it seems to be doing "okay" and today she went into the restroom and patient's mom heard a loud thump to which she came to check on her and her no response. She entered the bathroom to find patient unresponsive on the floor at which point EMS was activated. EMS arrived to find asystole rhythm and patient unresponsive. ACLS was started with eventual PEA and ROSC cycling [id number] between those 2 and route to the ED. Please see ED course for further documentation. ROS, history and physical severely limited due to CPR.. [employer]: 17:05 LMP 08/29/2024, unknown ph Historical: - Allergies: 16:26 PENICILLINS; ph - PSHx: 16:26 Cholecystectomy; ph - Immunization history:: Adult Immunizations unknown. - Infectious Disease History:: Denies. - Social history:: Smoking status: unknown. ROS: 16:37 Unable to obtain ROS due to obtunded state, CPR, sp3 Exam: 16:37 Constitutional: The patient appears Exam limited by obesity and CPR. No signs of overt sp3 trauma noted. Emesis noted on the mouth and body without blood or coffee grounds. Pupils 4 mm and unresponsive. The following is examination after ROSC: Irregular pulse bounding and tachycardic. Abdomen soft. No track alfaro. GCS 3 T. 16:58 ECG was reviewed by the Attending Physician. EKG demonstrates supraventricular sp3 tachycardia at 152 bpm and irregular rhythm with incomplete right bundle and diffuse ST/T changes. Vital Signs: 15:59 BP 112 / 76; Pulse 162; Resp 18 A; Pulse Ox 88% on ETT ambu; ph 16:07 BP 82 / 53; Pulse 127; Resp 18; Pulse Ox 97% on ETT vent; ph 16:15 BP 104 / 70; Pulse 141; Resp 18; Pulse Ox 97% on ETT vent; ph 16:27 Weight 158.76 kg; Height 5 ft. 10 in. ; ph 16:33 BP 140 / 54; Pulse 143; Resp 18; Pulse Ox 98% on ETT vent; ph 16:45 BP 123 / 56; Pulse 144; Resp 20; Pulse Ox 94% on ETT vent; ph 17:06 BP 116 / 57; Pulse 145; Resp 18; Temp 96.6; Pulse Ox 95% on ETT vent; ph 17:10 BP 108 / 84; Pulse 145; Resp 18; Pulse Ox 95% on ETT vent; ph 17:30 BP 99 / 63; Pulse 147; Resp 18; Pulse Ox 96% on ETT vent; ph 17:45 BP 100 / 65; Pulse 147; Resp 18; Pulse Ox 97% on ETT vent; ph 18:00 BP 83 / 59; Pulse 122; Resp 18; Pulse Ox 99% on ETT vent; ph 18:21 BP 89 / 60; Pulse 122; Resp 18; Pulse Ox 99% on ETT vent; ph 18:25 BP 96 / 66; Pulse 122; Resp 18; Pulse Ox 99% on ETT vent; ph 18:45 BP 79 / 67; Pulse 122; Resp 18; Pulse Ox 100% on ETT vent; ph 18:55 BP 88 / 60; Pulse 122; Resp 18; Pulse Ox 100% on ETT vent; ph 19:00 BP 98 / 78; Pulse 123; Resp 18; Pulse Ox 100% on ETT vent; FiO2 100 %; al5 19:10 BP 98 / 73; Pulse 124; Resp 18; Pulse Ox 99% on ETT vent; FiO2 100 %; al5 19:20 BP 101 / 70; Pulse 122; Resp 18; Pulse Ox 99% on ETT vent; FiO2 100 %; al5 19:30 BP 93 / 79; Pulse 123; Resp 18; Pulse Ox 99% on ETT vent; FiO2 100 %; al5 19:40 BP 95 / 71; Pulse 129; Resp 18; Pulse Ox 99% on ETT vent; FiO2 100 %; al5 19:50 BP 89 / 78; Pulse 129; Resp 18; Pulse Ox 100% on ETT vent; FiO2 100 %; al5 20:00 BP 98 / 86; Pulse 125; Resp 18; Pulse Ox 100% on ETT vent; FiO2 100 %; al5 20:10 BP 88 / 74; Pulse 128; Resp 18; Pulse Ox 99% on ETT vent; FiO2 100 %; al5 20:20 BP 98 / 53; Pulse 123; Resp 18; Pulse Ox 100% on ETT vent; FiO2 100 %; al5 20:30 BP 101 / 67; Pulse 97; Resp 18; Pulse Ox 99% on ETT vent; FiO2 100 %; al5 20:40 BP 96 / 65; Pulse 105; Resp 18; Pulse Ox 99% on ETT vent; FiO2 100 %; al5 20:50 BP 117 / 59; Pulse 118; Resp 18; Pulse Ox 99% on ETT vent; FiO2 100 %; al5 21:00 BP 107 / 78; Pulse 123; Resp 18; Pulse Ox 100% on ETT vent; FiO2 100 %; al5 21:10 BP 100 / 81; Pulse 123; Resp 18; Pulse Ox 100% on ETT vent; FiO2 100 %; al5 16:27 Body Mass Index 50.22 (158.76 kg, 177.8 cm) ph Procedures: 16:39 CPR: See CPR flow sheet. Initial patient assessment: unresponsive, The presenting sp3 cardiac rhythm is PEA. respirations assisted with BVM, Compressions: began prior to arrival. Intubation: Intubated orally using # 4 Kristofer blade with 7.5 mm ETT. was successful on first attempt. Ventilated with Ambu bag. Tube secured with ETT lucas Placement verified by CXR, CO2 detector with (+) color change, auscultating bilateral breath sounds, Patient tolerated well. Central Line: the site was prepped with Betadine, a triple lumen catheter was inserted, in the right internal jugular vein, in 1 attempts. placement was verified, by CXR, by blood return, the site was dressed with using sterile technique, the patient tolerated the procedure, well. MDM: 16:14 Medical Screening Exam initiated sp3 16:40 Data reviewed: vital signs, nurses notes, EMS record, [facility] records, old medical sp3 records, lab test result(s), EKG, radiologic studies. ED course: Patient arrived with CPR in progress in PEA rhythm with LMA in place for airway and right IO in the lower extremity for access. Patient was moved over to ED stretcher. Please see code flow sheet for course of events and times. Briefly, epinephrine, atropine and bicarb was given with emphasis on bicarb due to potential overdose given history from family. Patient did respond eventually into PEA followed by PEA with pulse irregular and tachycardic. Patient was intubated with 7.5 ET tube and right IJ central line was placed sterile technique after ROSC Patient is currently on dopamine to maintain cardiovascular status. I discussed entire case with the family and full workup is pending including ABG, labs, EKG, chest x-ray etc. Patient will be placed in the ICU for further medical management. Chest x-ray was reviewed by me which demonstrates central line in adequate position and ET tube was pulled back 2 cm to 22 cm at the lip.. 17:05 ED course: Given EKG and profound metabolic acidosis, consider TCA or other overdose sp3 versus infection. We will cover both. Antibiotics ordered and bicarb drip also ordered. Further per inpatient team.. 08/29 16:09 Order name: Acetaminophen; Complete Time: 17:00 bp 08/29 16:09 Order name: Basic Metabolic Panel; Complete Time: 17:00 bp 08/29 16:09 Order name: CBC with Diff; Complete Time: 17:00 bp 08/29 16:09 Order name: ETOH Level; Complete Time: 17:00 bp 08/29 16:09 Order name: Hepatic Function; Complete Time: 17:00 bp 08/29 16:09 Order name: PT-INR; Complete Time: 17:00 bp 08/29 16:09 Order name: Ptt, Activated; Complete Time: 17:00 bp 08/29 16:09 Order name: Salicylate; Complete Time: 17:24 bp 08/29 16:09 Order name: Urine Drug Screen bp 08/29 16:15 Order name: ABG sp3 08/29 16:15 Order name: Lactate w/ 2H reflex if indic.; Complete Time: 17:00 sp3 08/29 16:15 Order name: UAM sp3 08/29 16:15 Order name: Test, Serum; Complete Time: 17:00 sp3 08/29 16:36 Order name: Troponin High Sensitivity; Complete Time: 17:00 EDMS 08/29 16:57 Order name: Manual Differential; Complete Time: 17:00 EDMS 08/29 17:01 Order name: Ghost Lactate-NO COLLECT Timer EDMS 08/29 17:05 Order name: Blood Culture Adult (2) sp3 08/29 17:26 Order name: Flu sp3 08/29 17:26 Order name: SARS RAPID sp3 08/29 17:26 Order name: Strep sp3 08/29 17:52 Order name: CBC with Automated Diff EDMS 08/29 17:52 Order name: CBC with Automated Diff EDMS 08/29 17:52 Order name: Comprehensive Metabolic Panel EDMS 08/29 17:52 Order name: Comprehensive Metabolic Panel EDMS 08/29 17:52 Order name: Lipid Profile EDMS 08/29 17:52 Order name: Lipid Profile EDMS 08/29 17:52 Order name: Liver (Hepatic) Function EDMS 08/29 17:52 Order name: Liver (Hepatic) Function EDMS 08/29 17:52 Order name: Protime (+INR) EDMS 08/29 17:52 Order name: Protime (+INR) EDMS 08/29 17:52 Order name: PTT, Activated Partial Thromb EDMS 08/29 17:52 Order name: PTT, Activated Partial Thromb EDMS 08/29 17:52 Order name: Troponin High Sensitivity EDMS 08/29 17:52 Order name: Troponin High Sensitivity EDMS 08/29 17:52 Order name: Troponin High Sensitivity EDMS 08/29 17:52 Order name: Troponin High Sensitivity EDMS 08/29 20:25 Order name: Lactate Sepsis 2 HR Follow-up EDMS 08/29 16:15 Order name: Chest Single View XRAY bp 08/29 16:15 Order name: Abdomen 1 View (KUB) XRAY bp 08/29 17:52 Order name: Chest Single View EDMS 08/29 17:52 Order name: Chest Single View EDMS 08/29 16:09 Order name: EKG; Complete Time: 16:09 bp 08/29 17:52 Order name: CONS Physician Consult EDMS 08/29 16:09 Order name: EKG - Nurse/Tech; Complete Time: 16:35 bp 08/29 16:09 Order name: IV Saline Lock; Complete Time: 16:35 bp 08/29 16:09 Order name: Labs collected and sent; Complete Time: 16:35 bp 08/29 16:15 Order name: Allen; Complete Time: 17:59 sp3 Administered Medications: 05:44 Drug: EPINEPHrine 0.1mg/mL 1:10,000 1 mg IVP once Route: IVP; Site: Other; ph 18:33 Follow up: Response: No adverse reaction ph 15:41 Drug: EPINEPHrine 0.1mg/mL 1:10,000 1 mg IVP once Route: IVP; Site: Other; ph 18:31 Follow up: Response: No adverse reaction ph 15:42 Drug: Sodium Bicarbonate 1 amp IVP once; (50 mL); equals 50 mEq Route: IVP; Site: Other;ph 18:32 Follow up: Response: No adverse reaction ph 15:42 Drug: Sodium Bicarbonate 1 amp IVP once; (50 mL); equals 50 mEq Route: IVP; Site: Other;ph 18:32 Follow up: Response: No adverse reaction ph 15:43 Drug: Sodium Bicarbonate 1 amp IVP once; (50 mL); equals 50 mEq Route: IVP; Site: Other;ph 18:32 Follow up: Response: No adverse reaction ph 15:43 Drug: NARcan (naloxone) 2 mg IVP once Route: IVP; Site: Other; ph 18:32 Follow up: Response: No adverse reaction ph 15:43 Drug: D50W 50 ml IVP once; (1 amp) Route: IVP; Site: Other; ph 18:32 Follow up: Response: No adverse reaction ph 15:48 Drug: EPINEPHrine 0.1mg/mL 1:10,000 1 mg IVP once Route: IVP; Site: Other; ph 18:33 Follow up: Response: No adverse reaction ph 15:49 Drug: Sodium Bicarbonate 1 amp IVP once; (50 mL); equals 50 mEq Route: IVP; Site: Other;ph 18:33 Follow up: Response: No adverse reaction ph 15:49 Drug: Atropine 1 mg IVP once Route: IVP; Site: Other; ph 18:33 Follow up: Response: No adverse reaction ph 15:50 Drug: NS 0.9% IV (30 ml/kg) 30 ml/kg IV at bolus once; Sepsis Protocol; to be given as ph a bolus over 90 minutes Route: IV; Rate: bolus; Site: Other; 18:15 Follow up: Response: No adverse reaction; IV Status: Completed infusion ph 15:50 Drug: Sodium Bicarbonate 1 amp IVP once; (50 mL); equals 50 mEq Route: IVP; Site: Other;ph 18:33 Follow up: Response: No adverse reaction ph 15:51 Drug: EPINEPHrine 0.1mg/mL 1:10,000 1 mg IVP once Route: IVP; Site: Other; ph 18:33 Follow up: Response: No adverse reaction ph 15:52 Drug: Atropine 1 mg IVP once Route: IVP; Site: Other; ph 18:34 Follow up: Response: No adverse reaction ph 15:54 Drug: Calcium Chloride 1 grams IVP once Route: IVP; Site: Other; ph 18:34 Follow up: Response: No adverse reaction ph 15:55 Drug: DOPamine IV (400mg/250mL Premix) 5 mcg/kg/min IV at calculated rate See ph Administration Instructions; Recommended max rate 20 mcg/kg/min; Titrate 2.5 mcg/kg/min as often as every 5 minutes to achieve goal (see titration policy); Goal parameter MAP greater than 65 mmHg. [*Low doses 1 to 4 mcg/kg/min may result in hypotension, decreased SVR*] Route: IV; Rate: calculated rate; Site: Other; 18:19 Follow up: Response: No adverse reaction; IV Status: Order to discontinue infusion ph 15:55 Drug: Calcium Chloride 1 grams IVP once Route: IVP; Site: Other; ph 18:34 Follow up: Response: No adverse reaction ph 17:35 Drug: Cefepime IVPB 1 grams IVPB at 200 ml/hr once over 30 mins; (mix in NS 100 mL) ph Route: IVPB; Rate: 200 ml/hr; Infused Over: 30 mins; Site: right antecubital; 18:05 Follow up: Response: No adverse reaction; IV Status: Completed infusion ph 18:05 Drug: Norepinephrine IV 0.1 mcg/kg/min IV at calculated rate See Administration ph Instructions; (Standard concentration 4 mg / 250 mL D5W); Recommended max rate 3 mcg/kg/min; Titrate 0.05 mcg/kg/min as often as every 5 minutes to achieve goal (see titration policy); Goal parameter MAP greater than 65 mmHg. Route: IV; Rate: calculated rate; Site: right jugular; 20:52 Follow up: Response: No adverse reaction; IV Status: Infusion continued upon admission al5 18:09 Drug: vancoMYCIN IVPB 1 grams IVPB once over 2 hrs Route: IVPB; Infused Over: 2 hrs; ph Site: right antecubital; 20:52 Follow up: Response: No adverse reaction; IV Status: Completed infusion; IV Intake: al5 250ml Disposition: 16:45 Critical Care:. sp3 Disposition Summary: 08/29/24 17:00 Hospitalization Ordered Notes: Hospitalization Status: Inpatient Admission sp3 Provider: Renaldo Soto spJavier Condition: Critical sp3 Problem: new sp3 Symptoms: have worsened sp3 Bed/Room Type: Standard sp3 Location: Intensive Care Unit(08/29/24 18:16) bd Room Assignment: 8-(08/29/24 20:17) Diagnosis - CPR with ROSC, cardiac arrest, lactic acidosis, altered mental status sp3 Forms: - Medication Reconciliation Form sp3 - SBAR form sp3 - Leadership Thank You Letter sp3 Critical care time excluding procedures: 16:45 Critical care time: Bedside Care: 25 minutes, Consultation: 10 minutes, Family sp3 Intervention: 10 minutes. Total time: 45 minutes Signatures: Dispatcher [employer] EDMS Oneyda Trujillo bd Mary Sun RN RN Jiemy Moran RN RN Jason Francis, RN RN bp Anderson Ann MD MD sp3 Desire Mayers Milagros Bustillo RN al5 Corrections: (The following items were deleted from the chart) 16:36 16:16 Troponin High Sensitivity+C.LAB.BRZ ordered. EDMN EDMN 17:08 16:09 Suicide Screening ([place]) ordered. bp ph 18:16 17:00 Telemetry/MedSurg (Inpatient) sp3 bd 18:16 17:00 sp3 bd 19:36 18:16 bd dw 20:17 19:36 7- dw
--- NOTE | 2024-08-29 17:01 | ER ---
Nurse's Notes [facility] Name: Madelyn Richards Age: 34 yrs Sex: Female : 1990 Arrival Date: 08/29/2024 Time: 15:46 Bed 3 Private MD: Diagnosis: CPR with ROSC, cardiac arrest, lactic acidosis, altered mental status Presentation: 08/29 15:38 Chief complaint: EMS states: 34 yo female, found unresponsive, face down in restroom by ph family, no pulse upon EMS arrival, asystole on monitor, CPR initiated by EMS, epi administered x 3, ROSC achieved at 1515, lost pulse after approx 5 minutes, PEA on monitor, estimated down time 10 minutes prior to EMS arrival. 15:38 Care prior to arrival: Oral airway placed, CPR manually performed by EMS Medication(s) ph given: epi x 2 IV initiated. IO to R tibia Glucose check: 195. 15:38 Compressions began prior to arrival. ph 16:34 Coronavirus screen: Vaccine status: unable to obtain. Ebola Screen: No symptoms or ph risks identified at this time. Initial Sepsis Screen: Does the patient meet any 2 criteria? No. Patient's initial sepsis screen is negative. Does the patient have a suspected source of infection? No. Patient's initial sepsis screen is negative. Risk Assessment: Do you want to hurt yourself or someone else? Unable to obtain. Onset of symptoms was August 29, 2024. 16:34 Method Of Arrival: EMS: [facility] ph 16:34 Acuity: ALBARO 1 ph [facility]: 17:05 LMP 08/29/2024, unknown ph Historical: - Allergies: 16:26 PENICILLINS; ph - PSHx: 16:26 Cholecystectomy; ph - Immunization history:: Adult Immunizations unknown. - Infectious Disease History:: Denies. - Social history:: Smoking status: unknown. Screenin:28 [facility] ED Fall Risk Assessment (Adult) History of falling in the last 3 months, ph including since admission No falls in past 3 months (0 pts) Confusion or Disorientation No (0 pts) Intoxicated or Sedated No (0 pts) Impaired Gait No (0 pts) Mobility Assist Device Used No (0 pt) Altered Elimination No (0 pt) Score/Fall Risk Level 0 - 2 = Low Risk Maintained a safe environment. Abuse screen: Denies threats or abuse. Denies injuries from another. Nutritional screening: No deficits noted. Tuberculosis screening: No symptoms or risk factors identified. Assessment: 15:38 CPR assessment: unresponsive, intubated, Ambu ventilation. ph 15:40 Cardiovascular: Rhythm is PEA. ph 15:50 Cardiovascular: Rhythm is PEA. ph 15:51 Cardiovascular: Rhythm is sinus tachycardia. ph 15:51 Reassessment: CPR paused for pulse check, + pulse, ROSC acheived. ph 16:30 General: Appears obese, well groomed, Behavior is unresponsive. Pain: Unable to use ph pain scale. Patient is unresponsive. Neuro: Level of Consciousness is unresponsive, Oriented to none Pupils are non-reactive. Cardiovascular: Rhythm is sinus tachycardia. Respiratory: Airway is patent via oral intubation Trachea midline. GI: Abdomen is obese, Oral gastric tube in place. : Allen in place to gravity drainage. Derm: Skin is pink, warm \T\ dry. 16:50 Respiratory: Ventilator assessment: ET Tube: 7.5 backed out to 22 cm at teeth. ph 19:21 General: Appears in no apparent distress. obese, well groomed, Behavior is al5 unresponsive. Pain: Unable to use pain scale. Patient is unresponsive. Neuro: Level of Consciousness is unresponsive, Oriented to none. Cardiovascular: Patient's skin is warm and dry. Rhythm is sinus tachycardia. Respiratory: Airway is patent via oral intubation Trachea midline Ventilator assessment: ET Tube: 7.5 22 cm at the teeth Tidal Volume: 500 Respiratory Rate: 18 FiO2: 100%. PEEP: 10. GI: Abdomen is obese, Oral gastric tube in place, to suction. : Allen in place to gravity drainage. Derm: Skin is pink, warm \T\ dry. Musculoskeletal: No deficits noted. 20:08 Reassessment: Patient appears in no apparent distress at this time. No changes from al5 previously documented assessment. Patient and/or family updated on plan of care and expected duration. Pain level reassessed. 20:25 Reassessment: gave report to marek reilly from ICU at this time. al5 Vital Signs: 15:59 BP 112 / 76; Pulse 162; Resp 18 A; Pulse Ox 88% on ETT ambu; ph 16:07 BP 82 / 53; Pulse 127; Resp 18; Pulse Ox 97% on ETT vent; ph 16:15 BP 104 / 70; Pulse 141; Resp 18; Pulse Ox 97% on ETT vent; ph 16:27 Weight 158.76 kg; Height 5 ft. 10 in. ; ph 16:33 BP 140 / 54; Pulse 143; Resp 18; Pulse Ox 98% on ETT vent; ph 16:45 BP 123 / 56; Pulse 144; Resp 20; Pulse Ox 94% on ETT vent; ph 17:06 BP 116 / 57; Pulse 145; Resp 18; Temp 96.6; Pulse Ox 95% on ETT vent; ph 17:10 BP 108 / 84; Pulse 145; Resp 18; Pulse Ox 95% on ETT vent; ph 17:30 BP 99 / 63; Pulse 147; Resp 18; Pulse Ox 96% on ETT vent; ph 17:45 BP 100 / 65; Pulse 147; Resp 18; Pulse Ox 97% on ETT vent; ph 18:00 BP 83 / 59; Pulse 122; Resp 18; Pulse Ox 99% on ETT vent; ph 18:21 BP 89 / 60; Pulse 122; Resp 18; Pulse Ox 99% on ETT vent; ph 18:25 BP 96 / 66; Pulse 122; Resp 18; Pulse Ox 99% on ETT vent; ph 18:45 BP 79 / 67; Pulse 122; Resp 18; Pulse Ox 100% on ETT vent; ph 18:55 BP 88 / 60; Pulse 122; Resp 18; Pulse Ox 100% on ETT vent; ph 19:00 BP 98 / 78; Pulse 123; Resp 18; Pulse Ox 100% on ETT vent; FiO2 100 %; al5 19:10 BP 98 / 73; Pulse 124; Resp 18; Pulse Ox 99% on ETT vent; FiO2 100 %; al5 19:20 BP 101 / 70; Pulse 122; Resp 18; Pulse Ox 99% on ETT vent; FiO2 100 %; al5 19:30 BP 93 / 79; Pulse 123; Resp 18; Pulse Ox 99% on ETT vent; FiO2 100 %; al5 19:40 BP 95 / 71; Pulse 129; Resp 18; Pulse Ox 99% on ETT vent; FiO2 100 %; al5 19:50 BP 89 / 78; Pulse 129; Resp 18; Pulse Ox 100% on ETT vent; FiO2 100 %; al5 20:00 BP 98 / 86; Pulse 125; Resp 18; Pulse Ox 100% on ETT vent; FiO2 100 %; al5 20:10 BP 88 / 74; Pulse 128; Resp 18; Pulse Ox 99% on ETT vent; FiO2 100 %; al5 20:20 BP 98 / 53; Pulse 123; Resp 18; Pulse Ox 100% on ETT vent; FiO2 100 %; al5 20:30 BP 101 / 67; Pulse 97; Resp 18; Pulse Ox 99% on ETT vent; FiO2 100 %; al5 20:40 BP 96 / 65; Pulse 105; Resp 18; Pulse Ox 99% on ETT vent; FiO2 100 %; al5 20:50 BP 117 / 59; Pulse 118; Resp 18; Pulse Ox 99% on ETT vent; FiO2 100 %; al5 21:00 BP 107 / 78; Pulse 123; Resp 18; Pulse Ox 100% on ETT vent; FiO2 100 %; al5 21:10 BP 100 / 81; Pulse 123; Resp 18; Pulse Ox 100% on ETT vent; FiO2 100 %; al5 16:27 Body Mass Index 50.22 (158.76 kg, 177.8 cm) ph ED Course: 15:45 Assisted provider with intubation using 7.5 mm ETT via oral route. ET tube secured at ph 24cm at the teeth. Set up intubation tray. Intubated by Anderson Ann MD Placement verified by CO2 detector w/ + color change, auscultating bilateral breath sounds, CXR. 15:54 Inserted saline lock: 18 gauge in right antecubital area, using aseptic technique. ph Flushed with 10 mL NS. 15:58 Patient arrived in ED. bd 15:59 Inserted saline lock: 18 gauge in left antecubital area, using aseptic technique. Blood ph collected. Flushed with 10 mL NS. 16:12 Assisted provider with central line placement. Set up central line tray. Triple lumen ph line placed in right internal jugular. Line placed by Anderson Ann MD Placement verified by CXR, blood return, Dressed with Tegaderm, Before procedure, did Practitioner(s) obtain informed consent? No. Patient \T\ family education about procedure, CLABSI prevention and S/S of infection? No. Time-out/Briefing performed prior to start of procedure? Yes. Was handwashing/sanitizing done immediately prior to procedure? Yes. Was patient positioned to in a way to prevent air embolism? Yes. Was procedure site sterilized? Yes, with betadine. Was the site allowed to dry? Yes. Was local anesthetic and/or sedation utilized? N/A. During the procedure, did the Practitioner(s) maintain a sterile field? Yes. Were unused ports clamped during insertion? Yes. Was a 2nd qualified MD obtained after 3 unsuccessful insertion attempts? N/A. Was blood aspirated from each lumen? Yes. After the procedure, did the Practitioner(s) clean the site and apply a sterile dressing? Yes. 16:14 Anderson Ann MD is Attending Physician. sp3 16:21 Jeimy Rainey RN is Primary Nurse. ph 16:23 EKG done, by ED staff, reviewed by Anderson Ann MD. ph 16:27 Arm band placed on Patient placed in an exam room, on a stretcher, on oxygen, on ph cardiac cath lab technologist, on pulse oximetry. 16:30 NGT: inserted 14 Fr. other via oral route verified placement of air over stomach, ph verified return of gastric contents, Placement verified by X-ray, to intermittent suction. Returned gastric contents. 16:34 Triage completed. ph 16:51 Chest Single View XRAY In Process Unspecified. EDMS 16:51 Abdomen 1 View (KUB) XRAY In Process Unspecified. EDMS 16:57 Allen cath inserted, using sterile technique, 16 Fr., by plastic worker, balloon inflated, to ph gravity drainage, urine specimen collected. 16:57 Notified ED physician of a critical lab result(s). lactic acid 19.8, glucose 595. ll1 16:59 Renaldo Soto is Hospitalizing Provider. sp3 17:05 Patient has correct armband on for positive identification. Placed in gown. Bed in low ph position. Call light in reach. Side rails up X2. Client placed on continuous cardiac and pulse oximetry monitoring. NIBP monitoring applied. surveillance monitor on. Warm blanket given. Pillow given. 18:29 Patient admitted, IV remains in place. ph Administered Medications: 05:44 Drug: EPINEPHrine 0.1mg/mL 1:10,000 1 mg IVP once Route: IVP; Site: Other; ph 18:33 Follow up: Response: No adverse reaction ph 15:41 Drug: EPINEPHrine 0.1mg/mL 1:10,000 1 mg IVP once Route: IVP; Site: Other; ph 18:31 Follow up: Response: No adverse reaction ph 15:42 Drug: Sodium Bicarbonate 1 amp IVP once; (50 mL); equals 50 mEq Route: IVP; Site: Other;ph 18:32 Follow up: Response: No adverse reaction ph 15:42 Drug: Sodium Bicarbonate 1 amp IVP once; (50 mL); equals 50 mEq Route: IVP; Site: Other;ph 18:32 Follow up: Response: No adverse reaction ph 15:43 Drug: Sodium Bicarbonate 1 amp IVP once; (50 mL); equals 50 mEq Route: IVP; Site: Other;ph 18:32 Follow up: Response: No adverse reaction ph 15:43 Drug: NARcan (naloxone) 2 mg IVP once Route: IVP; Site: Other; ph 18:32 Follow up: Response: No adverse reaction ph 15:43 Drug: D50W 50 ml IVP once; (1 amp) Route: IVP; Site: Other; ph 18:32 Follow up: Response: No adverse reaction ph 15:48 Drug: EPINEPHrine 0.1mg/mL 1:10,000 1 mg IVP once Route: IVP; Site: Other; ph 18:33 Follow up: Response: No adverse reaction ph 15:49 Drug: Sodium Bicarbonate 1 amp IVP once; (50 mL); equals 50 mEq Route: IVP; Site: Other;ph 18:33 Follow up: Response: No adverse reaction ph 15:49 Drug: Atropine 1 mg IVP once Route: IVP; Site: Other; ph 18:33 Follow up: Response: No adverse reaction ph 15:50 Drug: NS 0.9% IV (30 ml/kg) 30 ml/kg IV at bolus once; Sepsis Protocol; to be given as ph a bolus over 90 minutes Route: IV; Rate: bolus; Site: Other; 18:15 Follow up: Response: No adverse reaction; IV Status: Completed infusion ph 15:50 Drug: Sodium Bicarbonate 1 amp IVP once; (50 mL); equals 50 mEq Route: IVP; Site: Other;ph 18:33 Follow up: Response: No adverse reaction ph 15:51 Drug: EPINEPHrine 0.1mg/mL 1:10,000 1 mg IVP once Route: IVP; Site: Other; ph 18:33 Follow up: Response: No adverse reaction ph 15:52 Drug: Atropine 1 mg IVP once Route: IVP; Site: Other; ph 18:34 Follow up: Response: No adverse reaction ph 15:54 Drug: Calcium Chloride 1 grams IVP once Route: IVP; Site: Other; ph 18:34 Follow up: Response: No adverse reaction ph 15:55 Drug: DOPamine IV (400mg/250mL Premix) 5 mcg/kg/min IV at calculated rate See ph Administration Instructions; Recommended max rate 20 mcg/kg/min; Titrate 2.5 mcg/kg/min as often as every 5 minutes to achieve goal (see titration policy); Goal parameter MAP greater than 65 mmHg. [*Low doses 1 to 4 mcg/kg/min may result in hypotension, decreased SVR*] Route: IV; Rate: calculated rate; Site: Other; 18:19 Follow up: Response: No adverse reaction; IV Status: Order to discontinue infusion ph 15:55 Drug: Calcium Chloride 1 grams IVP once Route: IVP; Site: Other; ph 18:34 Follow up: Response: No adverse reaction ph 17:35 Drug: Cefepime IVPB 1 grams IVPB at 200 ml/hr once over 30 mins; (mix in NS 100 mL) ph Route: IVPB; Rate: 200 ml/hr; Infused Over: 30 mins; Site: right antecubital; 18:05 Follow up: Response: No adverse reaction; IV Status: Completed infusion ph 18:05 Drug: Norepinephrine IV 0.1 mcg/kg/min IV at calculated rate See Administration ph Instructions; (Standard concentration 4 mg / 250 mL D5W); Recommended max rate 3 mcg/kg/min; Titrate 0.05 mcg/kg/min as often as every 5 minutes to achieve goal (see titration policy); Goal parameter MAP greater than 65 mmHg. Route: IV; Rate: calculated rate; Site: right jugular; 20:52 Follow up: Response: No adverse reaction; IV Status: Infusion continued upon admission al5 18:09 Drug: vancoMYCIN IVPB 1 grams IVPB once over 2 hrs Route: IVPB; Infused Over: 2 hrs; ph Site: right antecubital; 20:52 Follow up: Response: No adverse reaction; IV Status: Completed infusion; IV Intake: al5 250ml Medication: 16:47 VIS not applicable for this client. ph Intake: 20:52 IV: 250ml; Total: 250ml. al5 Outcome: 15:51 Outcome Resuscitation successful ph 17:00 Decision to Hospitalize by Provider. sp3 21:31 Patient left the ED. jb4 Signatures: Dispatcher [employer] EDMS Oneyda Trujillo Patricia, RN RN ph Choco Mclean, RN RN jb4 Gerard Morris RN RN ll1 Anderson Ann MD MD sp3 Milagros Bustillo RN RN al5 Nancy Amor kb4 Corrections: (The following items were deleted from the chart) 16:46 16:23 EKG done, by ED staff, reviewed by Jeimy Rainey RN kb4 ph 16:47 16:23 Inserted saline lock: 18 gauge in left antecubital area, using aseptic technique. ph Blood collected. Flushed with 10 mL NS kb4 18:29 15:51 Cardiovascular: Rhythm is sinus tachycardia ph ph 20:11 20:00 BP 89 / 78; Pulse 129bpm; Resp 18bpm; Pulse Ox 100% ET / Ventilator FiO2 100%; al5al5 20:11 20:08 Reassessment: Patient appears in no apparent distress at this time. al5 al5
[2024-08-29] MEDS: D5W 1,000 ML with NA BICARB 8.4% 150 MEQ IV SCH (17:09)
[2024-08-29] MEDS ORDERED: NA CHLORIDE 0.9% 100 ML ONE (17:14)
[2024-08-29] MEDS ORDERED: NA CHLORIDE 0.9% 250 ML ONE (17:14)
[2024-08-29] MEDS ORDERED: VANCOMYCIN 1 GM/VIAL ONE (17:14)
[2024-08-29] MEDS ORDERED: CEFEPIME 1 GM/VIAL ONE (17:15)
--- NOTE | 2024-08-29 17:40 | P.HP ---
Certification for Inpatient Patient admitted to: Inpatient With expected LOS: >2 Midnights Patient will require the following post-hospital care: None Practitioner: I am a practitioner with admitting privileges, knowledge of patient current condition, hospital course, and medical plan of care. Services: Services provided to patient in accordance with Admission requirements found in Title 42 Section 412.3 of the Code of Federal Regulations Patient History Date of Service: 08/29/24 Reason for admission: Cardiac arrest, lactic acidosis Allergies Penicillins Allergy (Mild, Verified 09/05/12 16:25) Rash No Known Allergies Allergy (Uncoded 09/19/16 16:09) Unknown Physical Examination - Vital Signs Pulse: 121 Pulse Ox (%): 97 - Studies Laboratory Data (last 24 hrs) 08/29/24 08/29/24 08/29/24 16:12 16:12 16:12 WBC 14.00 H Hgb 9.0 L Hct 29.5 L Plt Count 240 PT 14.0 H INR 1.26 APTT 56.7 H Sodium 139 Potassium 3.7 BUN 14 Creatinine 1.28 H Glucose 595 H* Total Bilirubin < 0.2 L AST 173 H ALT 211 H Alkaline Phosphatase 68 Assessment and Plan - Plan Assessment and Plan Cardiac Arrest with ROSC Acute hypoxic respiratory failure 2/2 Respiratory arrest s/p mechanical ventilation Lactic acidosis -WBC 14, lactic acidosis 19.8 -ABG pending -UDS pending - negative -Follow blood cultures - Advance Directives Does patient have a Living Will: No Does patient have a Durable POA for Healthcare: No
[2024-08-29] MEDS ORDERED: ONDANSETRON 4 MG/2 ML VIAL IV PRN (17:47)
[2024-08-29] MEDS ORDERED: ACETAMINOPHEN 500 MG TAB PO PRN (17:47)
[2024-08-29] MEDS ORDERED: IPRATROPIUM BROM 0.5MG/2.5ML NEB PRN (17:47)
[2024-08-29] MEDS ORDERED: ALBUTEROL 2.5 MG/3 ML NEB SOL NEB PRN (17:47)
--- NOTE | 2024-08-29 17:49 | RAD REPORT ---
EXAMINATION: ONE VIEW CHEST XR CLINICAL INDICATION: Female, 34 years old.,POST ETT TECHNIQUE: Frontal chest projection is submitted. Examination is limited by patient positioning and t echnique. COMPARISON: 04/02/2008 FINDINGS: Endotracheal tube terminates 2.7 cm above the brenda. Enteric tube in place coursing below the lower femoral margin. Right IJ CVC with catheter tip at or slightly below the upper cavoatrial junction. Fluffy perihilar and upper lung opacities. Decreased inspiratory effort limits evaluation. Overexposu re on the second image limits evaluation of the right basal peripheral lung. No pneumothorax or sizable effusion. Mild cardiomegaly. Mediastinal contours are unremarkable. IMPRESSION: Satisfactory positioning of endotracheal and enteric tubes, and right IJ CVC. Perihilar and upper lung opacities as above, may reflect pulmonary edema or ARDS.
[2024-08-29] MEDS ORDERED: FENTANYL CITR 100 MCG/2 ML IV PRN (17:50)
[2024-08-29] MEDS ORDERED: NOREPINEPHRINE BITARTRATE/D5W 4 MG/250 ML KIT IV ONE ×2 (17:50→20:13)
--- NOTE | 2024-08-29 17:50 | RAD REPORT ---
EXAM: XR Abdomen 1 View (KUB) HISTORY: [facility] MAIN POST NG PLACEMENT Bed Name: 3 COMPARISON: Chest radiograph of the same day FINDINGS: Single view of the abdomen shows a nonspecific, nonobstructive bowel gas pattern. Enteric t ube tip extends to the mid aspect of the distended stomach and loops back up towards with its tip projecting in the fundus. No suspicious calcifications are seen. The bones are unremarkable. IMPRESSION: Satisfactory enteric tube position. Gaseous distention of the stomach.
--- NOTE | 2024-08-29 17:52 | P.HP ---
Certification for Inpatient Patient admitted to: Inpatient With expected LOS: >2 Midnights Patient will require the following post-hospital care: Other Practitioner: I am a practitioner with admitting privileges, knowledge of patient current condition, hospital course, and medical plan of care. Services: Services provided to patient in accordance with Admission requirements found in Title 42 Section 412.3 of the Code of Federal Regulations Patient History Date of Service: 08/30/24 Reason for admission: Cardiac arrest, lactic acidosis History of Present Illness: Patient is a 34-year-old female who was found unresponsive by her mother around 2:53 PM. Patient's mother actually heard a loud bang in the bathroom around 2:23 PM. She went to check on her daughter in the bathroom but she stated that her daughter did not open the door when she asked her if she was okay. That same time one of her friends had come to the front door and she went to answer it. Around 2:53 PM she realized her daughter had not come out of the bathroom so she went knocking on the bathroom door again asking her to respond to her. When she did not get a response even with the persistent banking she went inside and found her daughter facedown on the bathroom floor. She appeared to be foaming at the mouth. EMS was called. EMS arrived around 3:03 PM. Patient did not have a pulse and CPR was started. Intraosseous catheter was placed as well. Patient was brought into the emergency room. CPR was continued on arrival. Patient had return to spontaneous circulation around 3:51 PM. Patient was placed on vasopressors and patient had also been intubated. Patient was placed on mechanical ventilation. Patient has dilated pupils no response. Patient is not on any sedation at this time. Family arrived and emergency room physician and my colleague, Dr. Soto had a long discussion with the family. Patient's prognosis is very poor. Will continue monitoring patient closely for any neurologic signs of recovery. Try to get imaging later once patient stabilizes. Will also try to get a EEG. Neurology consultation will also be obtained. Prognosis is very poor. Allergies Penicillins Allergy (Mild, Verified 09/05/12 16:25) Rash No Known Allergies Allergy (Uncoded 09/19/16 16:09) Unknown - Past Medical/Surgical History -: Morbid obesity Past Surgical History: Unable to obtain - Family History Father Family History: Reviewed- Non-Contributory - Social History Smoking Status: Unknown if ever smoked Alcohol use: No CD- Drugs: No Review of Systems is unable to be obtained Physical Examination - Vital Signs Temperature: 98 F Blood Pressure: 90/60 Pulse: 121 Respirations: 18 Pulse Ox (%): 97 - Physical Exam General: Unresponsive, Comatose HEENT: Other (Intubated and sedated) Neck: Supple, 2+ carotid pulse no bruit, JVD not distended, No Thyromegaly Respiratory: Clear to auscultation bilaterally, Normal air movement Cardiovascular: Regular rate/rhythm, Normal S1 S2 Gastrointestinal: Normal bowel sounds, Soft and benign, Non-distended Musculoskeletal: No clubbing, No swelling Neurological: Other (Patient with no neurologic response at this time) Urinary: Allen catheter - Studies Laboratory Data (last 24 hrs) 08/29/24 08/29/24 08/29/24 16:12 16:12 16:12 WBC 14.00 H Hgb 9.0 L Hct 29.5 L Plt Count 240 PT 14.0 H INR 1.26 APTT 56.7 H Sodium 139 Potassium 3.7 BUN 14 Creatinine 1.28 H Glucose 595 H* Total Bilirubin < 0.2 L AST 173 H ALT 211 H Alkaline Phosphatase 68 Assessment & Plan - Problems (Diagnosis) (1) Hypoxic brain injury Current Visit: Yes Status: Acute (2) Cardiac arrest Current Visit: Yes Status: Acute - Plan Plan: 1. Neurologic; patient with significant time without oxygenation to the brain tissue. Prognosis is very poor. Continue with neurologic assessment. Make a neuro consult as well as EEG and imaging if were able to obtain. However, the family is aware that the time. That CPR was continued in the time period where she may have been without a pulse prior to CPR suggest that her prognosis is very poor. 2. Cardiovascular; patient hypotensive; continue with vasopressor support. Echocardiogram if available 3. Pulmonary; patient remains on mechanical ventilation. Continue vent support and pulmonary consulted 4. Renal/metabolic; anticipate that her renal function will worsen as patient will probably develop ATN. Will monitor electrolytes and replace as needed. Patient may need to get nutritional support through tube feedings 5. GI/liver; anticipate patient will have shock liver; continue monitoring LFTs. Nutritional support as mentioned above. PPI as well 6. Hematology; continue monitoring white blood cells; DVT prophylaxis 7. Infectious disease; prophylaxis as needed; no signs of infection at this time. Will go ahead and treat with prophylactic antibiotics for septic shock 8. Musculoskeletal/integumentary; range of motion exercises to prevent contractures and turn every 2 hours to prevent skin breakdown Overall, patient's prognosis is very poor. Family is aware of her poor prognosis. Family is visiting and they are all at bedside. Continue monitoring patient neurologically and reassess in 24 hours.. Discharge Plan: Other Plan to discharge in: Greater than 2 days - Advance Directives Does patient have a Living Will: No Does patient have a Durable POA for Healthcare: No - Code Status/Comfort Care Code Status Assessed: Yes Code Status: Full Code Critical Care: Yes Time Spent Managing PTS Care (In Minutes): 60
[2024-08-29 17:57] LABS: Specific Gravity 1.008 (1.005-1.030); Sqamous Epithelial None Seen /HPF (None Seen); Urine Bacteria None Seen /HPF (<20); Urine Bilirubin NEGATIVE (Negative); Urine Blood 2+ (Negative); Urine Clarity Extremely Turbid (Clear); Urine Color Colorless (Yellow); Urine Culture Reflex Order NOT NEEDED; Urine Glucose 3+ (Negative); Urine Ketones NEGATIVE (Negative); Urine Micro Reflex YN NO BILL MICROSCOPIC; Urine Nitrite NEGATIVE (Negative); Urine Protein 2+ (Negative); Urine RBC <5 /HPF (None Seen); Urine Urobilinogen Normal (Normal); Urine WBC <5 /HPF (<5); Urine pH 7.5 (5.0-7.0)
[2024-08-29] MEDS: NA CHLORIDE 0.9% 1,000 ML IV SCH (18:00)
[2024-08-29] MEDS ORDERED: propofoL 1,000 MG/100 ML VIAL IV SCH (18:00)
[2024-08-29 18:05] LABS: Barbiturates NEGATIVE (NEGATIVE); Benzodiazepines NEGATIVE (NEGATIVE); Cocaine NEGATIVE (NEGATIVE); METHAMPHETAM NEGATIVE (NEGATIVE); Methadone NEGATIVE (NEGATIVE); Opiates NEGATIVE (NEGATIVE); Phencyclidine NEGATIVE (NEGATIVE); THC Cannibis NEGATIVE (NEGATIVE)
[2024-08-29 18:32] LABS: SARS-CoV-2 Antigen CONTROL BLUE LINE VIS/BG OK; SARS-CoV-2 Antigen Rapid Res Negative (Negative)
[2024-08-29 19:52] LABS: Arterial Blood Carboxyhemoglob 0.3 % (0-1.5)
[2024-08-29 19:53] LABS: Blood Gas THB 11.8 g/dl (12-18)
[2024-08-29] MEDS: NOREPINEPHRINE BITARTRATE/D5W 4 MG/250 ML KIT IV ONE (21:45)
--- NOTE | 2024-08-29 22:21 | P.CNS ---
Date of Consult: 08/29/24 Reason for Consult: Cardiac arrest Chief Complaint: Cardiac arrest, lactic acidosis History of Present Illness: Patient is 34 years of age with no past medical history confirmed by her family members including her mother and daughter she was fine she apparently collapsed and took about 10 minutes for the EMS to get over there patient underwent CPR and was admitted from the emergency room currently in the ICU she is comatose pupils fixed dilated unresponsive does not take any medications patient did not have any cardiopulmonary problems Allergies Penicillins Allergy (Mild, Verified 09/05/12 16:25) Rash No Known Allergies Allergy (Uncoded 09/19/16 16:09) Unknown - Social History Smoking Status: Unknown if ever smoked Review of Systems is unable to be obtained Physical Examination Temp Pulse Resp BP Pulse Ox 96.6 F L 147 H 18 100/65 97 08/29/24 22:11 08/29/24 22:17 08/29/24 22:17 08/29/24 22:17 08/29/24 17:52 General: Comatose Respiratory: Clear to auscultation bilaterally Cardiovascular: No edema, Regular rate/rhythm, Normal S1 S2 Laboratory Data (last 24 hrs) 08/29/24 08/29/24 08/29/24 16:12 16:12 16:12 WBC 14.00 H Hgb 9.0 L Hct 29.5 L Plt Count 240 PT 14.0 H INR 1.26 APTT 56.7 H Sodium 139 Potassium 3.7 BUN 14 Creatinine 1.28 H Glucose 595 H* Total Bilirubin < 0.2 L AST 173 H ALT 211 H Alkaline Phosphatase 68 - Problems (1) Cardiac arrest Current Visit: Yes Status: Acute Plan: Patient is 34 years of age formally healthy no medical problems as per family members does not take any medications at home admitted with sudden cardiac arrest patient is currently comatose had prolonged CPR pupils fixed dilated plantars absent no spontaneous movement this occurred around 2 PM today patient was in metabolic acidosis chest x-ray shows bilateral infiltrates possible pulmonary edema not sure the etiology of her cardiac arrest urine tox screen is also negative
[2024-08-29] MEDS: SODIUM BICARB 50 MEQ/50ML VIAL ONE (22:51)
[2024-08-29] MEDS: NACHLORIDE 0.45% 1,000 ML IV ONE (22:57)
[2024-08-29] MEDS: NOREPINEPHRINE 4 MG in D5W 250 ML IV SCH (23:14)
[2024-08-29] MEDS: NACHLORIDE 0.45% 1,000 ML with NA BICARB 8.4% 100 MEQ IV SCH (23:16)
[2024-08-30 00:19] VITALS: BMI 52.0
[2024-08-30] MEDS: NOREPINEPHRINE BITARTRATE/D5W 4 MG/250 ML KIT IV ONE (03:20)
[2024-08-30 05:02] LABS: Absolute Lymphocytes (CBC) 0.8 K/uL (0.7-4.9); Absolute Monocytes 0.8 K/uL (0.1-1.3); Absolute Neutrophil 18.5 K/uL (1.8-8.0); Hematocrit 37.5 % (36.0-45.0); Hemoglobin 11.9 g/dL (12.0-15.0); Lymphocytes % 4.2 % (15.3-44.8); MCH 26.9 pg (27.0-35.0); MCHC 31.7 g/dL (32.0-36.0); MCV 84.8 fL (80-100); MPV 7.3 fL (7.6-11.3); Monocytes % 4.2 % (3.3-12.3); Neutrophils % 91.6 % (41.7-73.7); Nucleated RBC Absolute Count 0.1 (0-0); Nucleated Red Blood Cells % 0.3 % (0-0); Platelets 262 thou/uL (152-406); RBC Red Blood Cell Count 4.42 M/uL (3.86-4.86); Red Cell Distribution Width 16.2 % (12.1-15.2)
[2024-08-30 05:17] LABS: PT Prothrombin Time 14.2 SECONDS (9.4-12.5); PTT, Activated Partial Thromb 32.2 SECONDS (24.3-36.9); Protime INR 1.28
[2024-08-30 06:01] LABS: Arterial Blood Carboxyhemoglob 0.6 % (0-1.5); Blood Gas Oxyhemoglobin 76.8 % (94-97); Blood O2 Saturation 78.1 % (92-98.5)
[2024-08-30 06:02] LABS: Blood Gas THB 12.2 g/dl (12-18)
[2024-08-30 07:18] LABS: Troponin High Sensitivity 19487.3 pg/mL (<58.9)
[2024-08-30 07:36] LABS: ALT/SGPT 331 U/L (13-56); AST/SGOT 423 U/L (15-37); Albumin/Globulin Ratio 0.8 (1.1-1.8); Alkaline Phosphatase 68 U/L (45-117); Anion Gap 12.1 mEq/L (5.0-15.0); BUN Blood Urea Nitrogen 26 mg/dL (7-18); Bicarbonate 25 mEq/L (21-32); Bilirubin Direct < 0.2 mg/dL (0-0.2); Bilirubin Indirect, Calculated 0.1 mg/dL (0.2-0.8); Bilirubin Total 0.3 mg/dL (0.2-1.0); Globulin 3.7 g/dL (2.3-3.5); Glomerular Filtration Rate 36 ml/min (=/>90); Glucose Level 140 mg/dL (74-106); HDL Cholesterol 46 mg/dL (40-60); LDL Cholesterol, Calculated 24 mg/dL (<130); LDL Cholesterol,Calc NonReport 24; Magnesium 1.8 mg/dL (1.6-2.4); Phosphorus 6.2 mg/dL (2.5-4.9); Potassium 4.1 mEq/L (3.5-5.1); Protein, Total 6.7 g/dL (6.4-8.2); Sodium Level 142 mEq/L (136-145)
--- NOTE | 2024-08-30 08:58 | RAD REPORT ---
EXAMINATION: ONE VIEW CHEST XR CLINICAL INDICATION: Female, 34 years old.,Acute respiratory failure TECHNIQUE: Frontal chest projection is submitted. Examination is limited by patient positioning and t echnique. COMPARISON: 08/29/2024 FINDINGS: Endotracheal and enteric tubes unchanged in position. Right IJ CVC tip appears to project at the leve l of the right atrium. Interval improvement of fluffy central and upper lobe predominant airspace opacities more so on the left. Elevation of the right hemidiaphragm limits evaluation of the right ba se. No pneumothorax or sizable effusion. The heart is normal in size. Mediastinal contours are unchanged. IMPRESSION: Interval improvement of airspace opacities as above, suggesting improving edema or ARDS.
[2024-08-30 10:05] LABS: Arterial Blood Carboxyhemoglob 0.5 % (0-1.5); Blood Gas Oxyhemoglobin 97.9 % (94-97); Blood Gas THB 11.6 g/dl (12-18); Blood O2 Saturation 99.5 % (92-98.5)
[2024-08-30] MEDS: NA CHLORIDE 0.9% 500 ML IV ONE (10:16)
--- NOTE | 2024-08-30 12:42 | RAD REPORT ---
EXAM: CT Head Brain Wo Cont HISTORY: Brain injury COMPARISON: 08/07/2022 TECHNIQUE: Multiple contiguous axial images were obtained for a CT of the brain without contrast. Sag ittal and coronal reformats were performed. One or more of the following dose reduction techniques were used: Automated exposure control, adjus tment of the mA and kV according to patient size, and iterative reconstruction. Unless otherwise specified, incidental findings do not require dedicated imaging follow-up. FINDINGS: Extensive subarachnoid hemorrhage opacifying the basal cisterns, supratentorial and infratentorial damian lci,, with intraventricular extension along the trigones, lower lateral ventricle bodies adjacent to the foramen of Stephens, as well as the third and fourth ventricles. Trace hemorrhage also extends a cross the foramen magnum. No evidence of hydrocephalus, or abnormal extra-axial fluid collection. Diffuse supratentorial and infratentorial edema. Several tonsils extend about 7 mm below the level of the foramen magnum. Given the extent of subarachnoid hemorrhage which somewhat limits evaluation, there appears to be mo stly preserved arevalo-white matter differentiation. The calvarium is intact. Minimally displaced right nasal bone fractures. Patchy opacification with ai r-fluid levels throughout the paranasal sinuses. Patient is intubated. The mastoid air cells are essentially clear. IMPRESSION: Extensive subarachnoid hemorrhage as above with intraventricular extension. Diffuse supratentorial and infratentorial edema, with the tonsils extending for approximately 7 mm be low the level of the foramen magnum. No focal mass effect. No evidence of abnormal extra-axial fluid collections. Minimally displaced right nasal bone fractures. . THIS REPORT CONTAINS FINDINGS THAT MAY BE CRITICAL TO PATIENT CARE. The findings were verbally commun icated via telephone to Selam Santiago MD on 08/30/2024 12:01PM.
--- NOTE | 2024-08-30 13:00 | RAD REPORT ---
EXAMINATION: CTA HEAD, CTA neck CLINICAL INDICATION: Female, 34 years old. BRAIN INJURY TECHNIQUE: Axial CT images were obtained through the head and neck after intravenous contrast utilizi angiographic protocol with 3D post-processing (maximum intensity projection images, volume rendered images and/or shaded surface rendered images). One or more of the following dose reduction techniques were used: Automated exposure control, adjustment of the mA and/or kV according to patient size, and/or iterative reconstruction. Unless otherwise specified, incidental findings do not require dedicated imaging follow-up. COMPARISON: Noncontrast head CT of the same day FINDINGS: CTA HEAD: ICA: No opacification bilaterally on the initial head CTA images. Somewhat delayed images performed c oncurrently with the CTA NECK show opacification to the level of the left ICA communicating segment. No opacification of the intracranial right ICA. MARKUS: Nonopacified. MCA: Nonopacified. WELDING TEACHER: Nonopacified. Vertebrobasilar: Nonopacified. 3D images confirm these findings. CTA NECK: AORTA: The imaged aortic arch is normal. Normal three-vessel configuration of the arch. CCA: No artifact The common carotid arteries are patent and normal in caliber. ICA/ECA: Sluggish opacification starting at the origin of the right ICA, with no opacification of the skull base. Left ICA is patent, although on the earlier CTA head images show sluggish opacification distally. VERTEBRAL: Sluggish opacification of the right vertebral artery starting at the 1, with nonopacificat ion along V3 segment. Sluggish opacification of the left vertebral artery as well, with nonopacification starting V3 segment. SOFT TISSUE: No significant neck soft tissue abnormalities. Central interstitial prominence and patch y central and dependent airspace opacities in the included upper lungs suggesting pulmonary edema. 3D images confirm these findings. IMPRESSION: No evidence of opacification throughout the [place] vessels. Findings may relate to venous t hrombosis and/or increased intracranial pressure given the degree of parenchymal edema and subarachnoid hemorrhage. Patient status post prolonged cardiac arrest. No evidence of occlusion of the neck vessels is identified. Sluggish opacification of the distal cerv ical arteries to various degrees as above. Changes of pulmonary edema in the included upper lungs. NASCET criteria used to quantify ICA stenosis, with the following grading scheme: Mild 0-49% stenosis Moderate 50-69% stenosis Severe 70-99% stenosis Reference: [place] Symptomatic Carotid Endarterectomy Trial Collaborators; Cielo MILLERM, Clary DW, Patel RB, et al. Beneficial effect of carotid endarterectomy in symptomatic patients with high-grade carotid stenosis. N Engl J Med. 1990Apr 03;325(7):445-53. THIS REPORT CONTAINS FINDINGS THAT MAY BE CRITICAL TO PATIENT CARE. The CTA head findings were verbal ly communicated via telephone to Selam Santiago MD on 08/30/2024 12:01PM.
--- NOTE | 2024-08-30 16:01 | RAD REPORT ---
EXAMINATION: CTA HEAD, CTA neck CLINICAL INDICATION: Female, 34 years old. BRAIN INJURY TECHNIQUE: Axial CT images were obtained through the head and neck after intravenous contrast utilizi angiographic protocol with 3D post-processing (maximum intensity projection images, volume rendered images and/or shaded surface rendered images). One or more of the following dose reduction techniques were used: Automated exposure control, adjustment of the mA and/or kV according to patient size, and/or iterative reconstruction. Unless otherwise specified, incidental findings do not require dedicated imaging follow-up. COMPARISON: Noncontrast head CT of the same day FINDINGS: CTA HEAD: ICA: No opacification bilaterally on the initial head CTA images. Somewhat delayed images performed c oncurrently with the CTA NECK show opacification to the level of the left ICA communicating segment. No opacification of the intracranial right ICA. MARKUS: Nonopacified. MCA: Nonopacified. SECTION PLOTTER OPERATOR: Nonopacified. Vertebrobasilar: Nonopacified. 3D images confirm these findings. CTA NECK: AORTA: The imaged aortic arch is normal. Normal three-vessel configuration of the arch. CCA: No artifact The common carotid arteries are patent and normal in caliber. ICA/ECA: Sluggish opacification starting at the origin of the right ICA, with no opacification of the skull base. Left ICA is patent, although on the earlier CTA head images show sluggish opacification distally. VERTEBRAL: Sluggish opacification of the right vertebral artery starting at the 1, with nonopacificat ion along V3 segment. Sluggish opacification of the left vertebral artery as well, with nonopacification starting V3 segment. SOFT TISSUE: No significant neck soft tissue abnormalities. Central interstitial prominence and patch y central and dependent airspace opacities in the included upper lungs suggesting pulmonary edema. 3D images confirm these findings. IMPRESSION: No evidence of opacification throughout the [place] vessels. Findings may relate to venous t hrombosis and/or increased intracranial pressure given the degree of parenchymal edema and subarachnoid hemorrhage. Patient status post prolonged cardiac arrest. No evidence of occlusion of the neck vessels is identified. Sluggish opacification of the distal cerv ical arteries to various degrees as above. Changes of pulmonary edema in the included upper lungs. NASCET criteria used to quantify ICA stenosis, with the following grading scheme: Mild 0-49% stenosis Moderate 50-69% stenosis Severe 70-99% stenosis Reference: [place] Symptomatic Carotid Endarterectomy Trial Collaborators; Cielo MILLERM, Clary DW, Patel RB, et al. Beneficial effect of carotid endarterectomy in symptomatic patients with high-grade carotid stenosis. N Engl J Med. 1990Apr 03;325(7):445-53. THIS REPORT CONTAINS FINDINGS THAT MAY BE CRITICAL TO PATIENT CARE. The CTA head findings were verbal ly communicated via telephone to Selam Santiago MD on 08/30/2024 12:01PM.
[2024-08-30] MEDS ORDERED: NOREPINEPHRINE 4 MG in D5W 250 ML IV SCH (23:00)
[2024-08-31] MEDS: NOREPINEPHRINE BITARTRATE/D5W 4 MG/250 ML KIT IV ONE (02:12)
[2024-08-31 04:41] LABS: Absolute Eosinophils 0.2 K/uL (0-0.5); Absolute Lymphocytes (CBC) 2.5 K/uL (0.7-4.9); Absolute Monocytes 0.9 K/uL (0.1-1.3); Absolute Neutrophil 13.9 K/uL (1.8-8.0); Basophils % 0.2 % (0-1.3); Hematocrit 31.9 % (36.0-45.0); Hemoglobin 10.4 g/dL (12.0-15.0); Lymphocytes % 14.2 % (15.3-44.8); MCH 26.9 pg (27.0-35.0); MCHC 32.5 g/dL (32.0-36.0); MCV 82.7 fL (80-100); Monocytes % 5.2 % (3.3-12.3); Neutrophils % 79.4 % (41.7-73.7); Nucleated Red Blood Cells % 0.1 % (0-0); Platelets 152 thou/uL (152-406); RBC Red Blood Cell Count 3.86 M/uL (3.86-4.86); Red Cell Distribution Width 16.7 % (12.1-15.2)
[2024-08-31 04:53] LABS: Anion Gap 12.1 mEq/L (5.0-15.0); Magnesium 1.6 mg/dL (1.6-2.4); Phosphorus 3.6 mg/dL (2.5-4.9); Potassium 3.1 mEq/L (3.5-5.1)
[2024-08-31 04:57] LABS: Troponin High Sensitivity 8489.9 pg/mL (<58.9)
[2024-08-31] MEDS: KCL 20 MEQ/100 mL IVPB 20 MEQ/100 ML BAG IV SCH (08:11)
[2024-08-31] MEDS: MAGNESIUM SULFATE 1 gm IVPB 1 GM/100 ML BAG IV ONE (08:11)
--- NOTE | 2024-08-31 11:11 | P.PN ---
Date of Service: 08/30/[address] angiogram revealed no cerebral blood flow. Patient considered to have experienced brain . Spoke with neurology and they are in agreement. Notes pending. Will need to engage [facility] as patient is a organ donor. Discussed with mother and aunt who were at bedside along with the grandmother. Physical Examination - Vital Signs reviewed - Physical Exam General: Unresponsive, Comatose HEENT: Other (Intubated and sedated) Respiratory: Clear to auscultation bilaterally, Normal air movement Cardiovascular: Regular rate/rhythm, Normal S1 S2 Gastrointestinal: Normal bowel sounds, Soft and benign, Non-distended Musculoskeletal: No clubbing, No swelling Neurological: Patient with no neurologic response at this time; pupils fixed and dilated; no gag reflex; no corneal reflex; Urinary: Allen catheter Assessment & Plan - Problems (Diagnosis) (1) Anoxic brain injury with subarachnoid hemorrhage Current Visit: Yes Status: Acute (2) Cardiac arrest Current Visit: Yes Status: Acute - Plan Plan: 1. Neurologic; patient is experienced brain . No cerebral blood flow. Significant hypoxic brain injury with significant increase in intracranial pressure and possible herniation. Spoke with family and let them know that she meets the clinical definition of brain . No criteria for transfer. 2. Cardiovascular; patient hemodynamically stable. Vasopressors as needed. 3. Pulmonary; patient remains on mechanical ventilation. No respiratory response once respiratory rate is stopped. Apnea testing could compromise her hemodynamically. Will hold off on apnea testing 4. Renal/metabolic; ATN; no nutritional needs. Monitor electrolytes. 5. GI/liver; shock liver; continue PPI. No nutritional needs as patient has met brain criteria. 6. Hematology; will hold off on labs at this time. 7. Infectious disease; prophylaxis as needed; 8. Musculoskeletal/integumentary; no aggressive measures at this time. Patient meets clinical definition of brain with ancillary testing showing no cerebral blood flow. Spoke with family and they are in agreement. Discussing about organ donation. Discharge Plan: Other Plan to discharge in: Greater than 2 days - Advance Directives Does patient have a Living Will: No Does patient have a Durable POA for Healthcare: No - Code Status/Comfort Care Code Status Assessed: Yes Code Status: Full Code Critical Care: Yes Time Spent Managing PTS Care (In Minutes): 60
[2024-08-31] MEDS: NA CHLORIDE 0.9% 500 ML ONE (13:26)
[2024-08-31] MEDS: NA CHLORIDE 0.9% 500 ML IV ONE (13:31)
--- NOTE | 2024-08-31 18:23 | P.PN ---
Date of Service: 08/31/24 Subjective Family spoke with nighttime physician and patient had transfer initiated. However, patient meets criteria for brain with no cerebral blood flow. Unable to get transferred at any other hospitals as patient meets criteria for brain . Family may need some more time to come to an understanding. Will allow them some more time and we will have neurology talk to the family as well. Patient recent criteria for transfer as patient has met definition for brain with ancillary testing and clinical findings. Patient also with persistent diarrhea. Most likely has lost her rectal tone because of sympathetic nervous system nonfunctioning and parasympathetic nervous system functioning unopposed which is seen in brain patients. Unable to due to apnea testing. [facility] on hold. Physical Examination - Vital Signs reviewed - Physical Exam General: Unresponsive, Comatose HEENT: Other (Intubated and sedated) Respiratory: Clear to auscultation bilaterally, Normal air movement Cardiovascular: Regular rate/rhythm, Normal S1 S2 Gastrointestinal: Normal bowel sounds, Soft and benign, Non-distended; Musculoskeletal: No clubbing, No swelling Neurological: Patient with no neurologic response at this time; pupils fixed and dilated; no gag reflex; no corneal reflex; doll's eye negative; caoric ocular testing no response Urinary: Allen catheter Assessment & Plan - Problems (Diagnosis) (1) Anoxic brain injury with subarachnoid hemorrhage Current Visit: Yes Status: Acute (2) Cardiac arrest Current Visit: Yes Status: Acute - Plan Plan: 1. Neurologic; patient has experienced brain which indicates that patient has complete irreversible loss of all brain functioning including the brainstem. No cerebral blood flow on CT angiogram to the brain-this has been present for almost 48 hours; without blood flow most brain cells will within 10 minutes. There is no blood flow to the brain for almost 48 hours; per CT scan report and speaking to the radiologist blood flow terminates at the entrance of the internal carotids into the foramen magnum as well as the vertebral arteries into the foramen magnum there is no blood flow after this. At this time there has been significant anoxic brain injury leading to brain . Spoke with family and let them know that she meets the clinical definition of brain . No criteria for transfer. 2. Cardiovascular; patient hemodynamically stable. Vasopressors as needed. 3. Pulmonary; patient remains on mechanical ventilation. Apnea testing could compromise her hemodynamically and prevent organ donation. Will hold off on apnea testing 4. Renal/metabolic; ATN; no nutritional needs. Monitor electrolytes. 5. GI/liver; shock liver; continue PPI. No nutritional needs as patient has met brain criteria. 6. Hematology; will hold off on labs at this time. 7. Infectious disease; prophylaxis as needed; 8. Musculoskeletal/integumentary; no aggressive measures at this time. Patient meets clinical definition of brain with ancillary testing showing no cerebral blood flow. Overnight, there was some confusion and transfer was initiated. Spoke to family today regarding the futility of transfer. Patient has been declared brain by neurology services and myself. Plan is to allow for the family to spend time with the patient prior to proceeding with organ donation. At this time we are allowing the family to grieve prior to proceeding with [facility] involvement. Will readdress this in the morning with the family. Discharge Plan: Other Plan to discharge in: Greater than 2 days - Advance Directives Does patient have a Living Will: No Does patient have a Durable POA for Healthcare: No - Code Status/Comfort Care Code Status Assessed: Yes Code Status: DNAR Critical Care: Yes Time Spent Managing PTS Care (In Minutes): 60
--- NOTE | 2024-08-31 18:26 | CON ---
Reason For Consultation: Consultation was called because the patient is unresponsive after prolonged resuscitation. History Of Present Illness: Ms. Richards is a 34-year-old patient who was found unresponsiv e by her mother around 2:53 p.m. on 08/29/2024. She reportedly heard a loud bang in the bathroom rebekah und 2:23 and when she checked on her daughter, the door was locked and she did not hear an answer. H er mother was called away at that time and did not come back until around 2:53 when she realized the daughter is still in the bathroom. At that point, she was found unresponsive and the emergency medic al services were contacted. She was found face down in the bathroom with foam at the mouth and she h ad advanced life support initiated. She had an intraosseous catheter placed. She was brought to the emergency room and CPR was continued. Spontaneous circulation was attained around 3:51 p.m. She wa s on multiple vasopressors, had been intubated, mechanically ventilated. At that time, pupils were f ound to be fixed and dilated. Her Beaumont Coma Score was 3. Dr. Soto, the hospitalist, had a long discussion with the patient's family and they wanted to have further evaluation done to make a deter mination as to her clinical status. A CT scan of her head that was done on 08/30/2024 showed extensi ve subarachnoid hemorrhage, diffuse subtentorial and infratentorial edema with tonsils extending 7 mm below the level of the foramen magnum. There was no abnormal extraaxial fluid collection. A subseq uent CT angiogram of the head was done, that study showed no opacified anterior cerebral artery, midd le cerebral artery, or posterior cerebral artery bilaterally. No opacified vertebrobasilar artery. There was sluggish opacification of the right internal carotid and no opacification of the skull base . CT angiogram of her neck showed the aortic arch is normal, 3 vessel configuration. No artifact se en. The common carotid is patent, normal in caliber. The internal carotid, external carotid sluggis h opacification of the arch and the right internal carotid. No opacification of the skull base. The left internal carotid is patent, although prior CTA images showed sluggish flow. Impression was no evidence of opacification throughout the [place]. Findings are related to venous thrombosis or increased intracranial pressure given the degree of parenchymal edema and subarachnoid hemorrhage , especially in the case of the patient being prolonged post cardiac arrest. Laboratory Studies: Showed on the at 4:15, pH of 7.1, pCO2 of 55, pO2 of 95, and yesterday pH o f 7.31, pCO2 of 51.3, pO2 of 377. Her white blood cell count today is 17.5 with 79.4% neutrophils, h emoglobin 10.4, platelets 152. INR 1.23. Sodium 143, potassium 3.1, chloride 108, BUN 43, creatinin e 3.87. Her lactic acid on the at 8:00 p.m. was around 4.3 and a troponin series high given res uscitation was 19,487 on the at 4:45 a.m. The urinalysis shows extreme turbidity, 3+ glucose, 2 + blood, 2+ total protein. The urine tox screen was negative. Negative serum alcohol, marijuana, co gabriela, benzodiazepines, amphetamines, barbiturates, methadone, opiates, and salicylates were all nega tive and COVID-19 test is negative. Past Medical History: No significant history at this point and not obtainable. Allergies: PENICILLIN. Family History: Noncontributory. Social History: No reported alcohol, tobacco, or IV drug use. Review of Systems: No meaningful review of systems is obtainable. Physical Examination: Vital Signs: Blood pressure 84/64; pulse up to 134; respiratory rate 25, which is set on machine. H er saturation is 98%, FiO2 of 40 and mechanically ventilated. Temperature 98.3. General: Ms. Richards is lying intubated. No spontaneous movement of her face, arm, leg. No eye op ening spontaneously. She is obese with BMI of 52, 363 pounds weight, and height 5 feet 10 inches. HEENT: The pupils are nonreactive to light. No doll's eyes movement identified. No response of cor neals. She does not breathe off the machine. No gag response noted. Neuro: She has no response to noxious stimulation in the upper and lower extremities including no fl exion or extension responses. She has normal tone in the upper and lower extremities and of course n o way to assess sensation, coordination, and any way to assess the gait as she is completely unrespon sive. Assessment And Plan: Ms. Richards is a 34-year-old patient who has had a prolonged cardiopulmonary r esuscitation and at this point is completely nonfunctional brain activity. There is no cerebral bloo d flow on angiogram studies identified over a day and a half ago. There is cerebral edema with diffu se hemorrhage and herniation of [address] scan. She has no response to noxious stimulation in the u pper and lower extremities. No spontaneous movement. No eye opening and not breathing over the vent ilator. This finding was discussed with the patient's mother and aunt and multiple family members wh o were present in the room. The communication of the patient's brain activity is absolutely up there and she is brain at this point and she is best served at this point for considering organ donat ion. 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 They are currently considering the possibility of a trans casie for an another evaluation and opinion on the patient's condition. At this point, a strong recomm endation is for early organ donation as the patient's cardiopulmonary state is likely to deteriorate and make it not possible to donate organs. The family is to make a decision at some point and will c ommunicate that with the ICU staff and then proceed if possible with organ donation. BUBBA/PATIENCE Voice ID: [id number] Report ID: [id number]
--- NOTE | 2024-08-31 18:37 | P.PN ---
Date of Service: 08/30/24 Called to see the patient on 08/30/2024 at 10 PM Patient is on vent Hypotensive Will start on Levophed if MAP less than 65 Multiple family members present at the time of examination They wanted to transfer to higher level of care for a second opinion Discussed with attending and neurology Discussed with the family again and advised them about the futility of the transfer because of severe brain dysfunction of the patient. They insisted on transferring Initiated transfer Discussed the case with neurointensivist in [facility] Discussed about the CT findings and clinical findings Refused transfer at this point because of the futility of the transfer. Advised to wait for repeat neurology evaluation in AM and reinitiate transfer if in case patient has any brain activities The same was conveyed to the family
--- NOTE | 2024-09-01 00:34 | P.PN ---
Date of Service: 09/01/24 Subjective Physical Examination - Vital Signs reviewed - Physical Exam General: Unresponsive, Comatose HEENT: Other (Intubated and sedated) Respiratory: Clear to auscultation bilaterally, Normal air movement Cardiovascular: Regular rate/rhythm, Normal S1 S2 Gastrointestinal: Normal bowel sounds, Soft and benign, Non-distended; Musculoskeletal: No clubbing, No swelling Neurological: Patient with no neurologic response at this time; pupils fixed and dilated; no gag reflex; no corneal reflex; doll's eye negative; caoric ocular testing no response Urinary: Allen catheter Assessment & Plan - Problems (Diagnosis) (1) Anoxic brain injury with subarachnoid hemorrhage Current Visit: Yes Status: Acute (2) Cardiac arrest Current Visit: Yes Status: Acute - Plan Plan: 1. Neurologic; patient has experienced brain which indicates that patient has complete irreversible loss of all brain functioning including the brainstem. No cerebral blood flow on CT angiogram to the brain-this has been present for almost 48 hours; without blood flow most brain cells will within 10 minutes. There is no blood flow to the brain for almost 48 hours; per CT scan report and speaking to the radiologist blood flow terminates at the entrance of the internal carotids into the foramen magnum as well as the vertebral arteries into the foramen magnum there is no blood flow after this. At this time there has been significant anoxic brain injury leading to brain . Spoke with family and let them know that she meets the clinical definition of brain . No criteria for transfer. 2. Cardiovascular; patient hemodynamically stable. Vasopressors as needed. 3. Pulmonary; patient remains on mechanical ventilation. Apnea testing could compromise her hemodynamically and prevent organ donation. Will hold off on apnea testing 4. Renal/metabolic; ATN; no nutritional needs. Monitor electrolytes. 5. GI/liver; shock liver; continue PPI. No nutritional needs as patient has met brain criteria. 6. Hematology; will hold off on labs at this time. 7. Infectious disease; prophylaxis as needed; 8. Musculoskeletal/integumentary; no aggressive measures at this time. Patient meets clinical definition of brain with ancillary testing showing no cerebral blood flow. Overnight, there was some confusion and transfer was initiated. Spoke to family today regarding the futility of transfer. Patient has been declared brain by neurology services and myself. Plan is to allow for the family to spend time with the patient prior to proceeding with organ donation. At this time we are allowing the family to grieve prior to proceeding with [facility] involvement. Will readdress this in the morning with the family. Discharge Plan: Other Plan to discharge in: Greater than 2 days - Advance Directives Does patient have a Living Will: No Does patient have a Durable POA for Healthcare: No - Code Status/Comfort Care Code Status Assessed: Yes Code Status: DNAR Critical Care: Yes Time Spent Managing PTS Care (In Minutes): 60
--- NOTE | 2024-09-01 04:35 | P.DS ---
Admission Date: 08/29/24 Discharge Date: 09/02/24 Disposition: Reason for Admission: Cardiac arrest, lactic acidosis Brief History of Present Illness: 34-year-old female who was found unresponsive by her mother around 2:53 PM. Patient's mother actually heard a loud bang in the bathroom around 2:23 PM. She went to check on her daughter in the bathroom but she stated that her daughter did not open the door when she asked her if she was okay. That same time one of her friends had come to the front door and she went to answer it. Around 2:53 PM she realized her daughter had not come out of the bathroom so she went knocking on the bathroom door again asking her to respond to her. When she did not get a response even with the persistent banking she went inside and found her daughter facedown on the bathroom floor. She appeared to be foaming at the mouth. EMS was called. EMS arrived around 3:03 PM. Patient did not have a pulse and CPR was started. Intraosseous catheter was placed as well. Patient was brought into the emergency room. CPR was continued on arrival. Patient had return to spontaneous circulation around 3:51 PM. Patient was placed on vasopressors and patient had also been intubated. Patient was placed on mechanical ventilation. Patient has dilated pupils no response. Patient is not on any sedation at this time. Family arrived and emergency room physician and my colleague, Dr. Soto had a long discussion with the family. Patient's prognosis is very poor. Will continue monitoring patient closely for any neurologic signs of recovery. Hospital Course: Patient was admitted to the ICU and was intubated on mechanical ventilator support. Neurology was consulted. Imagings were done. Severe brain dysfunction was diagnosed. Family requested withdrawal of care. Patient was extubated and clinically. Discharge diagnoses Cardiorespiratory arrest Anoxic brain injury Sudden cardiac arrest with prolonged resuscitation Extensive subarachnoid hemorrhage with intraventricular extension. Diffuse supratentorial and infratentorial edema Acute hypoxic hypercapnic respiratory failure Lactic acidosis Laboratory Data at Discharge: WBC 17.50 thou/uL (4.3-10.9) H 08/31/24 04:05 Hgb 10.4 g/dL (12.0-15.0) L D 08/31/24 04:05 Hct 31.9 % (36.0-45.0) L 08/31/24 04:05 Plt Count 152 thou/uL (152-406) D 08/31/24 04:05 PT 14.2 SECONDS (9.4-12.5) H 08/30/24 04:45 INR 1.28 08/30/24 04:45 APTT 32.2 SECONDS (24.3-36.9) 08/30/24 04:45 Sodium 143 mEq/L (136-145) 08/31/24 04:05 Potassium 3.1 mEq/L (3.5-5.1) L D 08/31/24 04:05 BUN 43 mg/dL (7-18) H 08/31/24 04:05 Creatinine 3.87 mg/dL (0.55-1.02) H 08/31/24 04:05 Glucose 122 mg/dL (74-106) H 08/31/24 04:05 Phosphorus 3.6 mg/dL (2.5-4.9) 08/31/24 04:05 Magnesium 1.6 mg/dL (1.6-2.4) 08/31/24 04:05 Total Bilirubin 0.3 mg/dL (0.2-1.0) 08/30/24 04:45 AST 423 U/L (15-37) H 08/30/24 04:45 ALT 331 U/L (13-56) H 08/30/24 04:45 Alkaline Phosphatase 68 U/L (45-117) 08/30/24 04:45 Triglycerides 65 mg/dL (<150) 08/30/24 04:45 Cholesterol 83 mg/dL (<200) 08/30/24 04:45 HDL Cholesterol 46 mg/dL (40-60) 08/30/24 04:45 Cholesterol/HDL Ratio 1.80 08/30/24 04:45 Followup: NONE,NONE [Primary Care Provider] - Time spent managing pt's care (in minutes): 45
--- NOTE | 2024-09-01 09:59 | P.PN ---
Date of Service: 09/01/24 To whom it may concern: Mrs. Maurice Richards ([id number]) was seen in the hospital from 08/29/2024 until present. Patient has a poor prognosis and she has a critical illness, and it is requested that family from out of the country be allowed to visit on a temporary basis. If you have any questions, please call me at [phone]. Sincerely, Selam Santiago MD
[2024-09-01] MEDS ORDERED: NACHLORIDE 0.45% 1,000 ML with NA BICARB 8.4% 100 MEQ IV SCH (10:30)
[2024-09-01] MEDS ORDERED: SODIUM CHL 0.9% 1000 ML BAG IV ONE (10:59)
[2024-09-01] MEDS ORDERED: EPINEPHrine 1 MG/10 ML SYR IV ONE (10:59)
[2024-09-01] MEDS ORDERED: DOPAMINE 400 MG/250 ML D5W PREMIX IV ONE (10:59)
[2024-09-01] MEDS ORDERED: NALOXONE HCL 2 MG/2 ML VIAL IV ONE (10:59)
[2024-09-01] MEDS ORDERED: ATROPINE SULF 1 MG/10 ML SYR IV ONE (10:59)
[2024-09-01] MEDS ORDERED: Calcium Chloride 10% INJ SYR IV ONE (10:59)
[2024-09-02 15:05] VITALS: BP 94/64; TEMP 97.6
[2024-09-02 15:34] VITALS: O2SAT 99
--- NOTE | 2024-09-04 12:16 | EKG ---
Test Date: 2024-08-29 Test Time: 16:03:05 Round Up Ring Hand: LML MEASUREMENT RESULTS: Intervals: Rate: 152 [place]: QRSD: 114 QT: 282 QTc: 448 [place]: P: [place]: QRS: 145 T: 157 INTERPRETIVE STATEMENTS: Atrial fibrillation with RVR Left posterior fascicular block Cannot rule out Anterior infarct, age undetermined Marked ST abnormality, possible lateral subendocardial injury Abnormal ECG No previous ECG available for comparison Electronically Signed On 09-04-24 12:13:44 [facility] by Hasmukh Aguirre
== END 2024-09-01 11:00 | disposition expired | DRG 208 ==
LOC: ER 15:46 → ERHOLD 17:47 → 3RD-ICU 20:05
PROVIDERS: ADMIT Hospitalist; ATTEND Hospitalist
PROC: 5A1945Z Respiratory Ventilation, 24-96 Consecutive Hours (ICD-10-PCS; principal; 2024-08-29)
PROC: 5A12012 Performance of Cardiac Output, Single, Manual (ICD-10-PCS; 2024-08-29)
PROC: 4A033R1 Measurement of Arterial Saturation, Peripheral, Percutaneous Approach (ICD-10-PCS; 2024-08-29)
PROC: 0BH17EZ Insertion of Endotracheal Airway into Trachea, Via Natural or Artificial Opening (ICD-10-PCS; 2024-08-29)
PROC: 3E033XZ Introduction of Vasopressor into Peripheral Vein, Percutaneous Approach (ICD-10-PCS; 2024-08-29)
DX: J96.01 Acute respiratory failure with hypoxia (principal); I60.9 Nontraumatic subarachnoid hemorrhage, unspecified; N17.0 Acute kidney failure with tubular necrosis; K72.01 Acute and subacute hepatic failure with coma; G93.1 Anoxic brain damage, not elsewhere classified; E87.20 Acidosis, unspecified; Z68.43 Body mass index [BMI] 50.0-59.9, adult; J96.02 Acute respiratory failure with hypercapnia; I46.9 Cardiac arrest, cause unspecified; E66.01 Morbid (severe) obesity due to excess calories; Z88.0 Allergy status to penicillin; Z11.52 Encounter for screening for COVID-19
CPT/HCPCS: 31500; 36415; 36556; 36600; 43753; 51702; 70450; 70496; 70498; 71045; 74018; 80048; 80053; 80061; 80076; 80143; 80179; 80307; 81001; 82077; 82248; 82805; 82947; 83605; 83735; 84100; 84484; 84703; 85025; 85610; 85730; 87040; 87070; 87081; 87804; 87811; 92950; 93005; 94002; 94003; 99291; J0171; J0461; J0692; J1265; J2310; J3475; J3480; J7030; J7040; J7050; Q9967